=== PATIENT | male | born 1940 | race Caucasian/White ===

== ENCOUNTER 2024-07-09 12:52 | Inpatient (IN) | payer MEDICARE, MEDICAID, SELFPAY ==
[2024-07-09] VITALS (12 sets, daily range): BP systolic 151–217; BP diastolic 70–110; PULSE 42–84; RESP 12–100; TEMP 36.3–36.6; O2SAT 99–100; BMI 20.5
--- NOTE | 2024-07-09 | XR_ITS ---
Examination: MRI of brain without intravenous contrast. MRI brain with intravenous contrast. Date and time of exam:July 29, 2024 1800 hrs. Indications: Ataxia altered mental status confusion today Technique: Multiple axial and sagittal images of the brain to been obtained. Siemens high-resolution 1.52 Lakisha short bore scanner utilized. Sagittal sections, T1 weighted images, TR 500, TE 14, are performed. Axial sections proton-density and T2-weighted images have been obtained. Inversion recovery axial images, TR 9260, TE 111, TR 2500. Diffusion weighted images, axial sections, TR 4800, TE 128, B value 1000. Axial sections, ADC map, TR 4800, TE 128. Axial and coronal images were also obtained post 10 cc gadolinium administered intravenously. Findings:: Enlargement of the sella turcica is not present. The optic chiasm and infundibular stalk are not remarkable. There is no localized enlargement of the medulla or peter. Fourth ventricle and cerebellar tonsils appear normal in position. No subacute area of hemorrhage density is seen. Fourth ventricle is midline. Mass in the cerebellopontine angle region is not evident. 7th and 8th nerve complexes exhibit symmetry Globes are symmetrical Orbital musculature including medial lateral rectus muscles do not exhibit abnormality Increased white matter signal is significant Effacement of the cortical sulcal markings is not identified. Mass effect upon the ventricular system is not identified. Diffusion-weighted images demonstrate no focus of restricted diffusion Contrast images demonstrate no abnormal contrast enhancement Impression: Negative for acute hemorrhage mass effect or midline shift No acute infarct Prominent chronic microvascular white matter change
--- NOTE | 2024-07-09 13:03 | XR_ITS ---
Examination: AP chest single view Technique one AP portable upright chest single view Exam date and time: July 09, 2024 1357 hrs. Comparison October 10, 2012 Indications: Onset chest pain today. Findings: Normal heart size The lungs are clear. The osseous structures are intact Impression: No active disease
--- NOTE | 2024-07-09 13:03 | EKG_ITS ---
[facility] Test Date: 2024-07-09 Pat Name: CHIQUIS SINCLAIR Department: Room: - Gender: Male Sterile Proc Tech: : 1940 Requested By: Garrett Nieves Order Number: [id number] Reading MD: Garrett Nieves Measurements Intervals Gilman Rate: 66 P: 64 WI: 154 QRS: 68 QRSD: 97 T: -80 QT: 419 QTc: 440 Interpretive Statements SINUS RHYTHM POSSIBLE RIGHT VENTRICULAR CONDUCTION DELAY [RSR (QR) IN V1/V2] ST DEVIATION AND MODERATE T-WAVE ABNORMALITY, CONSIDER ANTEROLATERAL ISCHEMIA [-0.1+ mV T WAVE IN V3-V6] ST DEVIATION AND MODERATE T-WAVE ABNORMALITY, CONSIDER INFERIOR ISCHEMIA [-0.1+ mV T WAVE IN II/aVF] No previous ECG available for comparison /store/S0/[id number].pdf
--- NOTE | 2024-07-09 13:04 | XR_ITS ---
Examination: CT brain head without contrast. 2-D sagittal coronal reconstructions Date and time of exam:July 09, 2024 at 1343 hrs. Indications: Onset dizziness headaches today CTDI: vol (mGy):50.5 DLP: (mGycm):1015 Technique: Multiple CT axial sections of the brain have been obtained, 5 mm slice thickness. Contrast has not been administered. 2-D sagittal, coronal reconstructions have been obtained Low dose protocols were performed. One or more of the following dose reduction techniques were used; automated exposure control, adjustment of the mA and/or KV according to patient size, use of iterative reconstruction technique. Findings: No significant ventricular enlargement. Intra-axial or extra-axial hemorrhage density is not seen. No mass effect or midline shift Basal cisterns are not remarkable. Fourth ventricle is midline. Cranial vault intact. Impression: Negative for acute hemorrhage, mass effect or midline shift Advise clinical correlation and follow-up accordingly
--- NOTE | 2024-07-09 13:05 | EDNOTE_ITS ---
<Statement entered by Laurence Pleitez MD - 07/10/24 13:50> As co-signing physician, I was present and available for consult prn. I concur with the plan and care as documented by the midlevel provider. ED General RME/HPI General Chief complaint: Weakness Stated complaint: WEAKNESS, DIZZINESS Time Seen by Provider: 07/09/24 13:03 Arrival date/time: 07/09/24 12:52 RME / HPI RME / HPI narrative: 84-year-old male patient with significant history of hypertension, BPH, was brought in by EMS for evaluation regarding sudden onset of dizziness. Apparently patient lives alone, and called EMS for sudden onset of dizziness. Per EMS, there was no other family member in the house. With the patient transferred from the bed to the [facility], patient was noted to have ataxic gait. Patient told me that he lives alone. He is not using a walker or cane to ambulate. Patient denies any headache. Denies any fever. Denies any vomiting denies any other complaints. No medication was taken prior to arrival Related Data Home Medications ?Medication ?Instructions ?Recorded ?Confirmed tamsulosin 0.4 mg capsule (Flomax) 0.4 mg PO QDAY Pros islas ##0 07/20/13 02/04/18 amlodipine 10 mg tablet 10 mg PO QDAY 02/04/1802/04 ferrous sulfate 325 mg (65 mg 325 mg PO QDAY 02/04/18 02/04/18 iron) tablet (iron) metoprolol succinate 50 mg 50 mg PO DAILY 02/04/1811/16 tablet,extended release 24 hr sucralfate 1 gram tablet 0.5 tab PO BID 02/04/1811/16 Allergies Allergy/AdvReac Type Severity Reaction Status Date / Time No Known Allergies Allergy Unverified 02/04/18 10:52 Review of Systems Review of Systems Narrative Review of Systems: Review of system reviewed and within normal limits except mentioned in HPI ED Exam Narrative Physical exam: VITAL SIGNS: Reviewed. GENERAL APPEARANCE: Alert and interactive, follows commands, no acute distress, HEAD AND FACE: Non-traumatic. ENT: PERRL, pink conjunctivitis, eyelid no trauma, Mucous membrane moist. NECK: Supple, nontender, no nuchal rigidity. CHEST: No tenderness, no crepitus, no paradoxical movement, no retractions. LUNGS: Clear, well ventilated, symmetric, no rales, no wheezing, no ronchi, no stridor, good breath sounds bilaterally. HEART: Regular rate, regular rhythm, no murmur, no gallops. ABDOMEN: Soft, positive bowel sounds, nondistended, no guarding, nontender, no rebound, no masses, RECTAL: Deferred. GENITAL: Deferred. NEUROLOGICAL: Gross motor function intact sensory function intact, Appropriate for age. MUSCULOSKELETAL: low back nontender, full range of motion. EXTREMITIES: Nontender, full range of motion. SKIN: Color pink, dry, no rash, no lacerations, no abrasions, no contusions. LYMPHATICS: Deferred. Course Quality Measures none Orders Category Date Time Status 24 HR Medical Restraints Q2HR Care 07/09/24 15:34 Active COVID-19 Screening Questionnaire NOW Care 07/09/24 15:53 Active Decision to Admit X1 Care 07/09/24 15:53 Completed EKG (ED ONLY) *Do not use* NOW Care 07/09/24 13:04 Completed العلي to [place] Routine Care 07/09/24 15:54 Ordered MRI Screening NOW Care 07/09/24 15:[address] head/brain wo con Stat Exams 07/09/24 13:04 Completed EKG (ED Only) Stat Exams 07/09/24 13:03 Draft MR head/brain wo/w con Stat Exams 07/09/24 Ordered XR chest 1V Stat Exams 07/09/24 13:03 Completed Ammonia Stat Lab 07/09/24 15:53 Received B-Type Natriuretic Peptide Stat Lab 07/09/24 13:17 Completed CBC Stat Lab 07/09/24 13:17 Completed Comprehensive Metabolic Panel Stat Lab 07/09/24 13:17 Completed Drug Screen,Urine Stat Lab 07/09/24 13:54 Completed Partial Thromboplastin Time Stat Lab 07/09/24 13:17 Completed Prothrombin Time with INR Stat Lab 07/09/24 13:17 Completed Troponin I Stat Lab 07/09/24 13:17 Completed Urinalysis, C/S if Indicated Stat Lab 07/09/24 13:54 Completed LORazepam [Ativan Inj] Med 07/09/24 14:46 Discontinued 1 mg IVP X1 ONE LORazepam [Ativan Inj] Med 07/09/24 15:32 Discontinued 2 mg IM X1 ONE LORazepam [Ativan Inj] Med 07/09/24 15:26 Discontinued 2 mg IVP X1 ONE POTASSIUM CHL 10 mEq IVPB [Kcl Ivpb] Med 07/09/24 15:57 Active 10 meq in 100 ml IV X1 Sodium Chloride 0.9% 1000 ml [Ns] 1,000 ml Med 07/09/24 14:46 Discontinued IV 999 mls/hr Sodium Chloride 0.9% 1000 ml [Ns] 1,000 ml Med 07/09/24 15:54 Active IV 999 mls/hr cloNIDine HCL [Catapres] Med 07/09/24 13:58 Discontinued 0.2 mg PO X1 ONE Vital Signs Vital signs: Vital Signs Temperature 97.8 F 07/09/24 13:00 Pulse Rate 74 07/09/24 13:00 Respiratory Rate 15 07/09/24 13:00 Blood Pressure 217/84 H 07/09/24 13:00 Pulse Oximetry (%) 99 07/09/24 13:00 Oxygen Delivery Method Room Air 07/09/24 13:00 [facility] Patient data External records reviewed:: None Clinical information provided by:: none Social determinants that could affect healthcare access:: none Patient has the following chronic illnesses:: Hypertension How is presenting disease/condition affected by chronic disease/condition?: e xacerbated by Evaluation data The following diagnostics were reviewed and interpreted by me:: lab results, radiology exam(s) and EKG tracing(s) Lab and/or radiology exams considered but not ordered:: None Interpretation Summary: EKG showed sinus rhythm, ventricular rate of 66 bpm, no ST segment elevation depression noted about workup all came back unremarkable. Including CT scan of the head. Medications Medications considered but not ordered:: None Medication administrations:: Medication Administration History Sodium Chloride (Ns) 1,000 mls @ 999 mls/hr IV .Q1H1M ONE Stop: 07/09/24 16:54 Potassium Chloride (Kcl Ivpb) 10 meq in 100 mls @ 100 mls/hr IV X1 ONE Stop: 07/09/24 16:56 Discontinued Medications Clonidine (Clonidine Hcl 0.1 Mg Tablet) 0.2 mg PO X1 ONE Stop: 07/09/24 13:59 Last Admin: 07/09/24 15:15 Dose: 0.2 mg Documented By: Admin: 07/09/24 14:13 Dose: Not Given Documented By: GM Non-Admin Reason: Cancelled by Provider Sodium Chloride (Ns) 1,000 mls @ 999 mls/hr IV .Q1H1M ONE Stop: 07/09/24 15:46 Lorazepam (Lorazepam 2 Mg/Ml Vial) 1 mg IVP X1 ONE Stop: 07/09/24 14:47 Last Admin: 07/09/24 14:53 Dose: 1 mg Documented By: MP Lorazepam (Lorazepam 2 Mg/Ml Vial) 2 mg IVP X1 ONE Stop: 07/09/24 15:27 Last Admin: 07/09/24 15:32 Dose: Not Given Documented By: GM Non-Admin Reason: Discontinued Lorazepam (Lorazepam 2 Mg/Ml Vial) 2 mg IM X1 ONE Stop: 07/09/24 15:33 Last Admin: 07/09/24 15:33 Dose: 2 mg Documented By: GM Patient received IV fluids for hydration, clonidine, Ativan Consultations Consultation(s) initiated? (list below): Yes Consultation #1 (Physician, Specialty, Details): I consulted with teleneurologist, and spoke with them, told me at this time he did not suspect any CVA, however he wanted the patient to be admitted for metabolic workup and hypertensive emergency Diagnosis Differential Diagnosis ED Complaint MDM: Dizziness, acute confusion, hypertensive urgency Most likely diagnosis given after review of the tests above:: Hypertensive emergency, acute confusion Admission Indicated Admission indicated?: indicated Explain why admission is indicated or not indicated:: Patient is to be admitted for further management Admission Request Was there a request for admission?: Yes Admission Attestation Admission request attestation: Discussed case with [Dr Syed] from Hospitalist service regarding admission. Discussed patients ED course, exam findings, labs, and radiology results. The Hospitalist [agrees to accept the patient for admission. Disposition Plan Disposition Plan: Admit Medical Decision Making MDM Narrative MDM Narrative: 84-year-old male patient with significant history of hypertension, BPH, was brought in by EMS for evaluation regarding sudden onset of dizziness. Apparently patient lives alone, and called EMS for sudden onset of dizziness. Per EMS, there was no other family member in the house. With the patient transferred from the bed [facility] the [facility], patient was noted to have ataxic gait. Patient told me that he lives alone. He is not using a walker or cane to ambulate. Patient denies any headache. Denies any fever. Denies any vomiting denies any other complaints. No medication was taken prior to arrival Stroke alert was initiated, and I spoke to the teleneurologist, and told me that at this time he do not suspect any CVA at this time however patient is to be admitted for metabolic workup. CT scan of the head came back unremarkable. Workup also all came back normal including normal urinalysis. Which patient become more violent and confused, hitting as, and patient was given Ativan and placed on a 4 point restraints. Differential Diagnosis Differential Diagnosis: Dizziness, acute confusion, hypertensive urgency Lab Data 07/09/24 13:17 07/09/24 13:17 Labs: Lab Results 07/09/24 07/09/24 Range/Units 13:17 13:54 WBC 8.6 (3.8-10.6) Thou/mm3 RBC 4.03 L (4.50-5.90) Miln/mm3 Hgb 12.4 L (13.5-16.0) g/dL Hct 36.2 L (41.0-53.0) % MCV 90 (80-100) fL MCH 30.8 (25.0-35.0) pg MCHC 34.3 (31.0-37.0) g/dl RDW Std Deviation 38.5 (35.1-43.9) fL Plt Count 219 (140-440) Thou/mm3 Neut % (Auto) 83 H (37-80) % Lymph % (Auto) 8 L (10-50) % Baxter % (Auto) 8 (0-12) % Eos % (Auto) 1 (0-10) % Baso % (Auto) 0 (0-2.5) % Neut # (Auto) 7.2 (1.8-7.7) Thou/mm3 Lymph # (Auto) 0.7 L (1.0-4.8) Thou/mm3 Baxter # (Auto) 0.7 (0.0-0.8) Thou/mm3 Eos # (Auto) 0.1 (0.0-0.5) Thou/mm3 Baso # (Auto) 0.0 (0.0-0.2) Thou/mm3 Immature Gran # (Auto) 0.02 H (0.00-0.00) Thou/mm3 Absolute Nucleated RBC 0.00 (0.00-0.00) Thou/mm3 Immature Gran % 0 (0-0) % Nucleated RBC % 0 (0) /100 WBC PT 10.4 (9.0-12.2) Seconds INR 0.9 (0.9-1.3) APTT 26.9 (22.0-36.0) Seconds Sodium 133 L (136-145) mMol/L Potassium 3.2 L (3.4-5.1) mMol/L Chloride 98 (98-107) mMol/L Carbon Dioxide 27.4 (20.0-31.0) mMol/L Anion Gap 8 (7-16) BUN 14 (9-23) mg/dL Creatinine 1.0 (0.6-1.3) mg/dL Estim Creat Clear Calc 46.8 L (>60) mL/min eGFR > 60 (60 - ) See Note BUN/Creatinine Ratio 14 (12-20) Ratio Glucose 116 H (74-106) mg/dL Calculated Osmolality 267 L (275-295) Calcium 9.1 (8.3-10.6) mg/dL Corrected Calcium 9.1 (8.5-10.1) mg/dL Total Bilirubin 0.7 (0.3-1.2) mg/dL AST 20 (0-34) U/L ALT 14 (10-49) U/L Alkaline Phosphatase 68 (46-116) U/L Troponin I 0.042 (0.0-0.045) ng/mL B-Natriuretic Peptide 339 H (0-100) pg/mL Total Protein 6.5 (5.7-8.2) gm/dL Albumin 4.2 (3.4-4.8) gm/dL Globulin 2.3 (2.3-3.5) gm/dL Albumin/Globulin Ratio 1.8 (1.2-2.2) Ur Collection Type Clean Catch Urine Color Colorless A (Lt Yel-Yel) Urine Clarity Clear (Clear/Hazy) Urine pH 7.0 (5.0-7.0) Ur Specific [place] 1.004 (1.001-1.035) Urine Protein Negative (Neg - Trace) Urine Glucose (UA) Negative (Negative) Urine Ketones Negative (Negative) Urine Blood Negative (Negative) Urine Nitrite Negative (Negative) Urine Bilirubin Negative (Negative) Urine Urobilinogen (Auto) Negative (0.0-1.0) mg/dL Ur Leukocyte Esterase Negative (Negative) Urine RBC < 1 (0-3) /hpf Urine WBC < 1 (0-5) /hpf Ur Squamous Epith Cells 0 (0-5) /hpf Urine Bacteria None (None) Ur Culture Indicated? Not Indicated Urine Opiates Screen Negative (Negative) Urine Fentanyl Screen Negative (Negative) Ur Barbiturates Screen Negative (Negative) U Amphetamin/Meth Scrn Negative (Negative) U Benzodiazepines Scrn Negative (Negative) U Cocaine Metab Screen Negative (Negative) U Marijuana (THC) Screen Negative (Negative) Discharge Plan Plan Patient Disposition: Admit Acute Care w/in Hospital Prescriptions/Referrals Prescriptions/Med Rec: No Action tamsulosin [Flomax] 0.4 MG capsule,extended release 24hr 0.4 mg PO QDAY Qty: 0 metoprolol succinate 50 mg Tablet Extended Release 24 Hr 50 mg PO DAILY sucralfate 1 gram Tablet 0.5 tab PO BID amlodipine 10 mg Tablet 10 mg PO QDAY ferrous sulfate [iron] 325 mg (65 mg iron) Tablet 325 mg PO QDAY Referrals: No Primary/Family,Physician [Primary Care Provider] - In 1 week Problem List Clinical Impression: Dizziness, Acute confusion Patient/Caregiver Discharge Instructions Print Language: Korean Stand Alone Forms: Norma Award Info., Patient Portal Info Letter
[2024-07-09 13:36] LABS: Basophils % (Auto) 0 % (0-2.5); Eosinophils # (Auto) 0.1 Thou/mm3 (0.0-0.5); Eosinophils % (Auto) 1 % (0-10); Hematocrit 36.2 % (41.0-53.0); Hemoglobin 12.4 g/dL (13.5-16.0); Immature Granulocytes % (Auto) 0 % (0-0); Immature Granulocytes Auto 0.02 Thou/mm3 (0.00-0.00); Lymphocytes # (Auto) 0.7 Thou/mm3 (1.0-4.8); Lymphocytes % (Auto) 8 % (10-50); Mean Corpuscular HGB Conc 34.3 g/dl (31.0-37.0); Mean Corpuscular Hemoglobin 30.8 pg (25.0-35.0); Mean Corpuscular Volume 90 fL (80-100); Monocytes # (Auto) 0.7 Thou/mm3 (0.0-0.8); Monocytes % (Auto) 8 % (0-12); Neutrophils # (Auto) 7.2 Thou/mm3 (1.8-7.7); Neutrophils % (Auto) 83 % (37-80); Nucleated Red Blood Cell % 0 /100 WBC (0); Platelet Count 219 Thou/mm3 (140-440); RDW Standard Deviation 38.5 fL (35.1-43.9); Red Blood Count 4.03 Miln/mm3 (4.50-5.90); White Blood Count 8.6 Thou/mm3 (3.8-10.6)
[2024-07-09 14:05] LABS: INR 0.9 (0.9-1.3); Partial Thromboplastin Time 26.9 Seconds (22.0-36.0); Prothrombin Time 10.4 Seconds (9.0-12.2)
[2024-07-09 14:10] LABS: B-Type Natriuretic Peptide 339 pg/mL (0-100)
[2024-07-09 14:12] LABS: Alanine Aminotransferase 14 U/L (10-49); Albumin, Serum 4.2 gm/dL (3.4-4.8); Albumin/Globulin Ratio 1.8 (1.2-2.2); Alkaline Phosphatase 68 U/L (46-116); Anion Gap 8 (7-16); Aspartate Amino Transferase 20 U/L (0-34); BUN/Creatinine Ratio 14 Ratio (12-20); Bilirubin,Total 0.7 mg/dL (0.3-1.2); Blood Urea Nitrogen 14 mg/dL (9-23); Calcium 9.1 mg/dL (8.3-10.6); Calcium (Corrected) 9.1 mg/dL (8.5-10.1); Carbon Dioxide 27.4 mMol/L (20.0-31.0); Chloride 98 mMol/L (98-107); Estimated Creatinine Clearance 46.8 mL/min (>60); Globulin 2.3 gm/dL (2.3-3.5); Glucose 116 mg/dL (74-106); Osmolality,Calculated 267 (275-295); Potassium 3.2 mMol/L (3.4-5.1); Sodium 133 mMol/L (136-145); Total Protein 6.5 gm/dL (5.7-8.2); Troponin I 0.042 ng/mL (0.0-0.045); eGFR > 60 See Note
[2024-07-09 14:38] LABS: Collection Type, Urine Clean Catch; Squamous Epithelial Cell,Urine 0 /hpf (0-5)
[2024-07-09 14:45] LABS: Bilirubin,Urine Negative (Negative); Blood,Urine Negative (Negative); Clarity,Urine Clear (Clear/Hazy); Color,Urine Colorless (Lt Yel-Yel); Culture Indicated,Urine Not Indicated; Glucose, Urine Negative (Negative); Ketones,Urine Negative (Negative); Leukocyte Esterase,Urine Negative (Negative); Nitrite,Urine Negative (Negative); Protein,Urine Negative (Neg - Trace); RBC,Urine < 1 /hpf (0-3); Specific Gravity,Urine 1.004 (1.001-1.035); Urobilinogen,Urine Negative mg/dL (0.0-1.0); WBC,Urine < 1 /hpf (0-5)
[2024-07-09 14:50] LABS: Amphetamine/Methamp Scrn,U Negative (Negative); Barbiturate Screen,Urine Negative (Negative); Benzodiazepines Screen,Urine Negative (Negative); Benzoylecgonine Screen, Ur Negative (Negative); Fentanyl Screen,Urine Negative (Negative); Opiate Screen,Urine Negative (Negative); THC Screen,Urine Negative (Negative)
[2024-07-09] MEDS: LORazepam 2 MG/ML VIAL 1 MG IVP (14:53)
[2024-07-09] MEDS: cloNIDine HCL 0.1 MG TABLET 0.2 MG PO (15:15)
--- NOTE | 2024-07-09 15:29 | ESCONSULT_ITS ---
History of Present Illness Data of Consult Primary Care Provider: Physician No Primary/Family Consult Narrative History of present illness: 84yo man with past medical history significant for HTN, CKD, BPH, and prior UGIB, who presents today with acute confusion and generalized weakness. Per EMS report the patient was endorsing dizziness. The patient is not able to endorse any significant history and is asking to go home. Unclear last known well. cc:: cc: Meds Home Medications and Allergies Home Medications ?Medication ?Instructions ?Recorded ?Confirmed ?Type tamsulosin 0.4 mg capsule (Flomax) 0.4 mg PO QDAY Pros islas ##0 07/20/13 02/04/18 History amlodipine 10 mg tablet 10 mg PO QDAY 02/04/1802/04 History ferrous sulfate 325 mg (65 mg 325 mg PO QDAY 02/04/18 02/04/18 History iron) tablet (iron) metoprolol succinate 50 mg 50 mg PO DAILY 02/04/1811/16 History tablet,extended release 24 hr sucralfate 1 gram tablet 0.5 tab PO BID 02/04/18 090 11/16 History Allergies Allergy/AdvReac Type Severity Reaction Status Date / Time No Known Allergies Allergy Unverified 02/04/18 10:52 Exam - Neurology Vital Signs Temp Pulse Resp BP Pulse Ox O2 Del Method 97.9 F 65 19 201/78 H 100 Room Air 07/09/24 15:00 07/09/24 15:15 07/09/24 15:00 07/09/24 15:15 07/09/24 15:00 07/09/24 15:00 Narrative Exam Examination: BP(201/78), Pulse(70), Blood Glucose(119) 1A: Level of Consciousness - Alert; keenly responsive + 0 1B: Ask Month and Age - Could Not Answer Either Question Correctly + 2 1C: Blink Eyes & Squeeze Hands - Performs Both Tasks + 0 2: Test Horizontal Extraocular Movements - Normal + 0 3: Test Visual Sharma - No Visual Loss + 0 4: Test Facial Palsy (Use Grimace if Obtunded) - Normal symmetry + 0 5A: Test Left Arm Motor Drift - No Drift for 10 Seconds + 0 5B: Test Right Arm Motor Drift - No Drift for 10 Seconds + 0 6A: Test Left Leg Motor Drift - No Drift for 5 Seconds + 0 6B: Test Right Leg Motor Drift - No Drift for 5 Seconds + 0 7: Test Limb Ataxia (FNF/Heel-Campos) - No Ataxia + 0 8: Test Sensation - Normal; No sensory loss + 0 9: Test Language/Aphasia - Normal; No aphasia + 0 10: Test Dysarthria - Normal + 0 11: Test Extinction/Inattention - No abnormality + 0 NIHSS Score: 2 Pre-Morbid Modified [place] Scale: Unable to assess Advanced Imaging: Advanced Imaging Deferred because: Stroke not suspected with clinical presentation and exam Metrics: Last Known Well: Unknown Dispatch Time: 07/09/2024 14:59:37 Arrival Time: 07/09/2024 13:05:00 Initial Response Time: 07/09/2024 15:00:11 Symptoms: confusion. Initial patient interaction: 07/09/2024 15:07:37 NIHSS Assessment Completed: 07/09/2024 15:12:14 Patient is not a candidate for Thrombolytic. Thrombolytic Medical Decision: 07/09/2024 15:12:14 Patient was not deemed candidate for Thrombolytic because of following reasons: LKW outside 4.5 hr window. . I personally Reviewed the CT Head and it Showed no acute hemorrhage or large evolving infarct. Primary Provider Notified of Diagnostic Impression and Management Plan on: 07/09/2024 15:39:08 Results Labs 07/09/24 13:17 07/09/24 13:17 Labs: Short CBC 07/09/24 Range/Units 13:17 WBC 8.6 (3.8-10.6) Thou/mm3 Hgb 12.4 L (13.5-16.0) g/dL Hct 36.2 L (41.0-53.0) % Plt Count 219 (140-440) Thou/mm3 BMP 07/09/24 13:17 Sodium 133 L Potassium 3.2 L Chloride 98 Carbon Dioxide 27.4 BUN 14 Creatinine 1.0 Glucose 116 H Calcium 9.1 Cardiac Enzymes 07/09/24 Range/Units 13:17 Troponin I 0.042 (0.0-0.045) ng/mL Liver Function 07/09/24 Range/Units 13:17 Total Bilirubin 0.7 (0.3-1.2) mg/dL AST 20 (0-34) U/L ALT 14 (10-49) U/L Alkaline Phosphatase 68 (46-116) U/L Albumin 4.2 (3.4-4.8) gm/dL Urine 07/09/24 Range/Units 13:54 Urine Color Colorless A (Lt Yel-Yel) Urine Clarity Clear (Clear/Hazy) Urine pH 7.0 (5.0-7.0) Ur Specific [place] 1.004 (1.001-1.035) Urine Protein Negative (Neg - Trace) Urine Glucose (UA) Negative (Negative) Assessment & Plan Additional Assessment & Plan Additional Plan: [facility] Patient Name: Truman Jang Date of : 1940 Identification Number: Date of Service: 07/09/2024 14:59:38 Diagnosis: ? G93.49 - Encephalopathy Multifactorial Impression: ? 84M, pmh sig for HTN, CKD, BPH, prior UGIB, presenting with generalized weakness and acute encephalopathy marked by disorientation, inattention, and difficulty following complex commands; but otherwise no focal neurol deficit noted; NIHSS 2, unknown last known well. CTH reassuring, and no concern for ischemic stroke or seizure. Concerning for toxic metabolic infectious etiologies. Recommendations: ? Toxic metabolic infectious work-up and empirical therapy per primary team Spoke with : er provider This consult was conducted in real time using interactive audio and video technology. Patient was informed of the technology being used for this visit and agreed to proceed. Patient located in hospital and provider located at home/office setting. Patient is being evaluated for possible acute neurologic impairment and high probability of imminent or life-threatening deterioration. I spent total of 45 minutes providing care to this patient, including time for face to face visit via telemedicine, review of medical records, imaging studies and discussion of findings with providers, the patient and/or family. Dr David Herrmann [facility] For Inpatient follow-up with [facility] physician please call [facility] at . As we are not an outpatient service for any post hospital discharge needs please contact the hospital for assistance. If you have any questions for the [facility] physicians or need to reconsult for clinical or diagnostic changes please contact us via [facility] at .
[2024-07-09] MEDS: LORazepam 2 MG/ML VIAL IM (15:33)
--- NOTE | 2024-07-09 15:35 | PC.NURSE ---
Addendum entered by Sami Agustin RN 07/09/24 15:50: @1536- [employer] RESOURCE ENGINEER as sitter at bedside. Original Note: SONJA RODRIGUEZ INITIATED AT THIS TIME; PT TRYING TO HIT STAFF AND SPITTING. PT START TO PULL AT LINES AND TRYING TO TAKE OFF MONITOR LEADS. PT EDUCATED REGARDING POC BUT PT NOT COOPERATING. TIM WALLACE PROGRAM ARCHITECT MADE AWARE AND VERBAL ORDERS RECEIVED.
[2024-07-09 16:29] LABS: Ammonia < 10 uMol/L (11-32)
--- NOTE | 2024-07-09 17:18 | PC.NURSE ---
RN called and spoke with Luis Enrique friend on EC did MRI screen for patient. Per Luis Enrique patient lives alone and does not have any close family. Per Luis Enrique will attempt to come by tomorrow to check in on patient.
--- NOTE | 2024-07-09 17:25 | ESHP_ITS ---
<Statement entered by Estevan Baldwin MD - 07/15/24 13:45> I reviewed above note and agree with findings and plans. I have also personally examined the patient with medicine team and went over assessment and plan with medical team including management intern and resident physician. Documentation for date of: 07/09/24 HPI History of Present Illness History of present illness: 84-year-old male patient with significant medical history for hypertension, BPH and prior history of upper GI bleed (per ED) was brought to [facility] for dizziness and ataxic gait. After witnessing patient with the symptoms, patient's neighbor had called the EMS. Patient does not use walker or cane for ambulation and unclear last well-known. Blood glucose by EMS was found to be WNL. In ED blood pressure was elevated at 217/84, CBC indicated Hgb 12.4, MCV 90, labs were significant for NA 133, K3.2, glucose 116, troponin 0.062, BNP 339. EKG showed sinus rhythm. Urinalysis and toxicology were negative. Head CT was negative for acute hemorrhage, chest x-ray showed no active disease, brain MRI was negative for hemorrhage. Initially patient was alert and able to answer questions but over time he became combative and patient was administered 3 mg Ativan along with soft restraints. Patient was admitted for hypertensive emergency in [facility] telemetry. Information was obtained from chart review and ED as patient was nonresponsive during admission. Review of Systems Review of Systems ROS Unobtainable: unobtainable due to mental status and unobtainable due to medical condition Exam Vital Signs Temp Pulse Resp BP Pulse Ox O2 Del Method 97.9 F 52 L 15 168/110 H 100 Room Air 07/09/24 16:26 07/09/24 17:18 07/09/24 17:18 07/09/24 16:26 07/09/24 16:26 07/09/24 16:26 Narrative Exam Constitutional: Cachectic, fragile looking elderly man, in mild distress, lying in bed HEENT: NCAT, EOMI, reactive round pupils b/l, patent nares b/l, moist mucous membranes Lung: CTAB, no wheezing, no rhonchi Heart: Regular S1S2, no murmurs, gallops, or rubs Abdomen: Soft, non-distended, non-tender, bowel sounds present throughout Extremities: No cyanosis, clubbing, or edema, LE pulses diminished b/l, soft restraints noted Neurologic: Unable to perform due to patient's mentation, AO x 1 Skin: Warm, dry, no lesions or rashes noted Results: Labs 07/09/24 13:17 07/09/24 13:17 Labs: Short CBC 07/09/24 Range/Units 13:17 WBC 8.6 (3.8-10.6) Thou/mm3 Hgb 12.4 L (13.5-16.0) g/dL Hct 36.2 L (41.0-53.0) % Plt Count 219 (140-440) Thou/mm3 BMP 07/09/24 13:17 Sodium 133 L Potassium 3.2 L Chloride 98 Carbon Dioxide 27.4 BUN 14 Creatinine 1.0 Glucose 116 H Calcium 9.1 Cardiac Enzymes 07/09/24 Range/Units 13:17 Troponin I 0.042 (0.0-0.045) ng/mL Liver Function 07/09/24 Range/Units 13:17 Total Bilirubin 0.7 (0.3-1.2) mg/dL AST 20 (0-34) U/L ALT 14 (10-49) U/L Alkaline Phosphatase 68 (46-116) U/L Albumin 4.2 (3.4-4.8) gm/dL Urine 07/09/24 Range/Units 13:54 Urine Color Colorless A (Lt Yel-Yel) Urine Clarity Clear (Clear/Hazy) Urine pH 7.0 (5.0-7.0) Ur Specific [place] 1.004 (1.001-1.035) Urine Protein Negative (Neg - Trace) Urine Glucose (UA) Negative (Negative) Quality Measures Quality Measures none Advance care planning discussed with:: other Medications Home Medications and Allergies Home Medications ?Medication ?Instructions ?Recorded ?Confirmed ?Type tamsulosin 0.4 mg capsule (Flomax) 0.4 mg PO QDAY Pros islas ##0 07/20/13 02/04/18 History amlodipine 10 mg tablet 10 mg PO QDAY 02/04/1802/04 History ferrous sulfate 325 mg (65 mg 325 mg PO QDAY 02/04/18 02/04/18 History iron) tablet (iron) metoprolol succinate 50 mg 50 mg PO DAILY 02/04/1811/16 History tablet,extended release 24 hr sucralfate 1 gram tablet 0.5 tab PO BID 02/04/18 09/0 11/16 History Allergies Allergy/AdvReac Type Severity Reaction Status Date / Time No Known Allergies Allergy Unverified 02/04/18 10:52 Visit Medications Acetaminophen (Acetaminophen 325 Mg Tablet) 650 mg PO Q6H PRN PRN Reason: Fever >101.5 Stop: 08/08/24 16:27 Amlodipine Besylate (Amlodipine Besylate 5 Mg Tablet) 10 mg PO X1 ONE Stop: 07/09/24 17:31 Last Admin: 07/09/24 17:24 Dose: Not Given Heparin Sodium (Porcine) (Heparin Sod Inj 5000 Unit/Ml Vial) 5,000 unit SC Q12HR KARLY Stop: 07/23/24 16:44 Labetalol HCl (Labetalol Inj 5 Mg/Ml Vial 20 Ml) 10 mg IVP Q6H PRN PRN Reason: blood pressure > 170 Stop: 08/08/24 16:35 Ondansetron HCl (Ondansetron Inj 2 Mg/Ml Inj 2 Ml) 4 mg IV Q6H PRN; Protocol PRN Reason: NAUSEA OR VOMITING Stop: 08/08/24 16:27 Pantoprazole Sodium (Pantoprazole Inj 40 Mg Vial) 40 mg IVP QDAY KARLY Stop: 08/09/24 08:59 Discontinued Medications Clonidine (Clonidine Hcl 0.1 Mg Tablet) 0.2 mg PO X1 ONE Stop: 07/09/24 13:59 Last Admin: 07/09/24 15:15 Dose: 0.2 mg Sodium Chloride (Ns) 1,000 mls @ 999 mls/hr IV .Q1H1M ONE Stop: 07/09/24 15:46 Last Admin: 07/09/24 17:23 Dose: Not Given Sodium Chloride (Ns) 1,000 mls @ 999 mls/hr IV .Q1H1M ONE Stop: 07/09/24 16:54 Potassium Chloride (Kcl Ivpb) 10 meq in 100 mls @ 100 mls/hr IV X1 ONE Stop: 07/09/24 16:56 Lorazepam (Lorazepam 2 Mg/Ml Vial) 1 mg IVP X1 ONE Stop: 07/09/24 14:47 Last Admin: 07/09/24 14:53 Dose: 1 mg Lorazepam (Lorazepam 2 Mg/Ml Vial) 2 mg IVP X1 ONE Stop: 07/09/24 15:27 Last Admin: 07/09/24 15:32 Dose: Not Given Lorazepam (Lorazepam 2 Mg/Ml Vial) 2 mg IM X1 ONE Stop: 07/09/24 15:33 Last Admin: 07/09/24 15:33 Dose: 2 mg Assessment & Plan Plan 84-year-old male patient with significant medical history for BPH and hypertension admitted for hypertensive emergency. #Hypertensive emergency #History of hypertension On admission patient complaining of dizziness ED vitals significant for blood pressure of 217/84 Patient administered Ativan soft restraints as he was becoming agitated Patient received clonidine in ED Plan: ? Admit to telemetry observation ? Blood pressure 20 to 25% within first 24 hours ? Start patient on amlodipine 10 mg daily ? IV labetalol 10 mg as needed every 6 hours for SBP >170 #Acute encephalopathy #Agitation Most likely secondary to hypertensive emergency Urinalysis and toxicology negative Head CT and MRI unremarkable for hemorrhage or midline shift Plan: ? Neurochecks every 4 hour ? Treat underlying hypertension by lowering SBP 20-25% in the first 24 hours ? N.p.o. ? Head of bed elevation ? Swallow evaluation ? Seizure precaution #Troponinemia, most likely type II On admission patient with elevated troponins of 0.062 EKG showed normal sinus rhythm Plan: ? Trend troponins #BPH Plan: Restart home med after reconciliation #History of upper GI bleed Per chart review patient with history of previous upper GI bleed Admission lab indicative of hemoglobin 12.4, MCV 90, hCG 36 Plan: ? Maintain Hgb >7 ? Follow-up CBC Health Maintenance Dispo: Patent admitted for obs due to hypertensive emergency Diet: NPO in setting of encephalopathy DVT/PPx: Heparin GI ppx: Protonix Lines: PIV Code Status: Full Code This patient care was discussed with my attending Dr. Denny Mendoza MD PGY-2 Disclaimer: Minor errors in powdered sugar supervisor may be present since this note was dictated by speech recognition software.
[2024-07-09 17:32] LABS: Troponin I 0.062 ng/mL (0.0-0.045)
[2024-07-09] MEDS: SODIUM CHLORIDE 0.9% 1000 ML 1,000 ML 999 ML IV (17:41)
[2024-07-09] MEDS: HEPARIN SOD INJ 5000 UNIT/ML VIAL SC (17:45)
[2024-07-09] MEDS: POTASSIUM CHL 10 mEq IVPB 10 MEQ/100 ML BAG 100 MEQ IV ×2 (17:45→22:18)
--- NOTE | 2024-07-09 21:36 | PC.NURSE ---
Unable to do med rec,pt is confused at this time.
[2024-07-09 23:53] LABS: Troponin I 0.078 ng/mL (0.0-0.045)
[2024-07-10] VITALS (12 sets, daily range): BP systolic 152–183; BP diastolic 68–100; PULSE 43–84; RESP 14–99; TEMP 35.9–37.2; O2SAT 99–100
--- NOTE | 2024-07-10 00:10 | PC.NURSE ---
Pt got up to use the bathroom, pt is non steady on his feet, with maximum assist.
--- NOTE | 2024-07-10 03:00 | PC.NURSE ---
Pt had smear on the pads, me and the sitter tried to cleaned him up but pt kicked on one of the staff, talked to him and explained that kicking staff is inappropriate behavior and hurting staff is not acceptable, pt tried to swing his legs and trying to get out of bed, bilateral wrist restraints applied.
[2024-07-10 05:43] LABS: Basophils # (Auto) 0.1 Thou/mm3 (0.0-0.2); Basophils % (Auto) 1 % (0-2.5); Eosinophils # (Auto) 0.1 Thou/mm3 (0.0-0.5); Eosinophils % (Auto) 1 % (0-10); Hematocrit 36.4 % (41.0-53.0); Hemoglobin 12.5 g/dL (13.5-16.0); Immature Granulocytes % (Auto) 0 % (0-0); Immature Granulocytes Auto 0.02 Thou/mm3 (0.00-0.00); Lymphocytes # (Auto) 0.6 Thou/mm3 (1.0-4.8); Lymphocytes % (Auto) 8 % (10-50); Mean Corpuscular HGB Conc 34.3 g/dl (31.0-37.0); Mean Corpuscular Hemoglobin 31.1 pg (25.0-35.0); Mean Corpuscular Volume 91 fL (80-100); Monocytes # (Auto) 0.6 Thou/mm3 (0.0-0.8); Monocytes % (Auto) 9 % (0-12); Neutrophils # (Auto) 5.6 Thou/mm3 (1.8-7.7); Neutrophils % (Auto) 81 % (37-80); Nucleated Red Blood Cell % 0 /100 WBC (0); Platelet Count 216 Thou/mm3 (140-440); RDW Standard Deviation 39.2 fL (35.1-43.9); Red Blood Count 4.02 Miln/mm3 (4.50-5.90); White Blood Count 6.9 Thou/mm3 (3.8-10.6)
[2024-07-10 06:13] LABS: Alanine Aminotransferase 12 U/L (10-49); Albumin, Serum 3.9 gm/dL (3.4-4.8); Albumin/Globulin Ratio 1.9 (1.2-2.2); Alkaline Phosphatase 65 U/L (46-116); Anion Gap 8 (7-16); Aspartate Amino Transferase 24 U/L (0-34); BUN/Creatinine Ratio 14 Ratio (12-20); Blood Urea Nitrogen 11 mg/dL (9-23); Calcium 8.8 mg/dL (8.3-10.6); Calcium (Corrected) 8.9 mg/dL (8.5-10.1); Carbon Dioxide 27.1 mMol/L (20.0-31.0); Chloride 105 mMol/L (98-107); Creatinine (Component) 0.8 mg/dL (0.6-1.3); Estimated Creatinine Clearance 58.5 mL/min (>60); Globulin 2.1 gm/dL (2.3-3.5); Glucose 92 mg/dL (74-106); Osmolality,Calculated 278 (275-295); Potassium 3.5 mMol/L (3.4-5.1); Sodium 140 mMol/L (136-145); Thyroid Stimulating Hormone 2.15 uIU/mL (0.55-4.78); eGFR > 60 See Note
[2024-07-10 06:15] LABS: Troponin I 0.058 ng/mL (0.0-0.045)
[2024-07-10] MEDS: amLODIPine BESYLATE 5 MG TABLET 10 MG PO (08:08)
[2024-07-10] MEDS: PANTOPRAZOLE INJ 40 MG VIAL IVP (08:11)
[2024-07-10] MEDS: HEPARIN SOD INJ 5000 UNIT/ML VIAL SC ×2 (08:11→20:30)
--- NOTE | 2024-07-10 10:38 | PC.SS ---
Utilization Reviewer (SW) Nkechi attempted to meet with patient. Patient was too confused to answer questions. SW attempted to contact emergency contact, Luis Enrique, with no success.
--- NOTE | 2024-07-10 13:21 | PC.NURSE ---
PATIENT GETTING AGGRESSIVE WITH STAFF. PATIENT IS ON RESTRAINTS IT TOOK MULTIPLE STAFF TO KEEP HIM ON BED. SONJA RODRIGUEZ JUST CALLED
[2024-07-10] MEDS: HALOPERIDOL LACT INJ 5 MG/ML VIAL IM (13:27)
--- NOTE | 2024-07-10 14:05 | PC.NURSE ---
Patient kicked and scratched staff. A code john and a rapid response were called. Haldol administered at bedside patient is calm resting in bed now.
[2024-07-10] MEDS: LORazepam 2 MG/ML VIAL IVP (15:12)
--- NOTE | 2024-07-10 18:48 | ESPR_ITS ---
<Statement entered by Estevan Baldwin MD - 07/18/24 15:02> I reviewed above note and agree with findings and plans. I have also personally examined the patient with medicine team and went over assessment and plan with medical team including resident intern and resident physician. Documentation for date of: 07/10/24 Subjective Subjective Interval history: Overnight patient had to be kept on restraints, and afternoon code john called as patient was found to be combative. Administered haloperidol for agitation. Later on once again patient needed to be administered Ativan for agitation's. Spoke to patient's friend Luis Enrique ([phone]) who is patient's only [id number]. Per Luis Enrique, few weeks ago patient was noted to be not himself in terms of cognition. Luis Enrique stated that when patient was at his baseline, he was very active, able to take care of himself, went hiking and bike riding. He states that right now patient seems to have lost a lot of weight. Currently patient is on amlodipine, will start lisinopril 10 mg and will continue to adjust BP medications as needed. Exam Vital Signs Temp Pulse Resp BP Pulse Ox O2 Del Method 99.0 F 53 L 14 169/100 H 100 Room Air 07/10/24 16:00 07/10/24 16:06 07/10/24 16:06 07/10/24 16:00 07/10/24 05:48 07/10/24 05:48 Narrative Exam Constitutional: Cachectic, fragile looking elderly man, in mild distress, lying in bed HEENT: NCAT, EOMI, reactive round pupils b/l, patent nares b/l, moist mucous membranes Lung: CTAB, no wheezing, no rhonchi Heart: Regular S1S2, no murmurs, gallops, or rubs Abdomen: Soft, non-distended, non-tender, bowel sounds present throughout Extremities: No cyanosis, clubbing, or edema, LE pulses diminished b/l, soft restraints noted Neurologic: Unable to perform due to patient's mentation, AO x 1 Skin: Warm, dry, no lesions or rashes noted Objective Labs 07/11/24 04:59 07/11/24 04:59 Labs: Laboratory Results - last 24 hr 07/09/24 07/10/24 22:53 04:24 WBC 6.9 RBC 4.02 L Hgb 12.5 L Hct 36.4 L MCV 91 MCH 31.1 MCHC 34.3 RDW Std Deviation 39.2 Plt Count 216 Neut % (Auto) 81 H Lymph % (Auto) 8 L [place] % (Auto) 9 Eos % (Auto) 1 Baso % (Auto) 1 Neut # (Auto) 5.6 Lymph # (Auto) 0.6 L [place] # (Auto) 0.6 Eos # (Auto) 0.1 Baso # (Auto) 0.1 Immature Gran # (Auto) 0.02 H Absolute Nucleated RBC 0.00 Immature Gran % 0 Nucleated RBC % 0 Sodium 140 Potassium 3.5 Chloride 105 Carbon Dioxide 27.1 Anion Gap 8 BUN 11 Creatinine 0.8 Estim Creat Clear Calc 58.5 L eGFR > 60 BUN/Creatinine Ratio 14 Glucose 92 Calculated Osmolality 278 Calcium 8.8 Corrected Calcium 8.9 Phosphorus 2.0 L Magnesium 2.0 Total Bilirubin 1.0 AST 24 ALT 12 Alkaline Phosphatase 65 Troponin I 0.078 H* 0.058 H* Total Protein 6.0 Albumin 3.9 Globulin 2.1 L Albumin/Globulin Ratio 1.9 TSH 2.15 Quality Measures Quality Measures none Advance care planning discussed with:: other Assessment & Plan Assessment Current Active Medications: Generic Name Dose Route Start Last Admin Trade Name Freq PRN Reason Stop Dose Admin Acetaminophen 650 mg 07/09/24 16:28 Acetaminophen 325 Mg Tablet PO 08/08/24 16:27 Q6H PRN Fever >101.5 Amlodipine Besylate 10 mg 07/10/24 09:00 07/10/24 08:08 Amlodipine Besylate 5 Mg Tablet PO 08/09/24 08:59 10 mg QDAY KARLY Administration Heparin Sodium (Porcine) 5,000 unit 07/09/24 16:45 07/10/24 08:11 Heparin Sod Inj 5000 Unit/Ml Vial SC 07/23/24 16:44 5,000 unit Q12HR KARLY Administration Labetalol HCl 10 mg 07/10/24 11:37 Labetalol Inj 5 Mg/Ml Vial 20 Ml IVP 08/08/24 16:35 Q6H PRN SYSTOLIC blood pressure > 170 Lisinopril 10 mg 07/10/24 21:00 Lisinopril 2.5 Mg Tablet PO 08/09/24 20:59 QDAY KARLY Ondansetron HCl 4 mg 07/09/24 16:28 Ondansetron Inj 2 Mg/Ml Inj 2 Ml IV 08/08/24 16:27 Q6H PRN NAUSEA OR VOMITING Protocol Pantoprazole Sodium 40 mg 07/10/24 09:00 07/10/24 08:11 Pantoprazole Inj 40 Mg Vial IVP 08/09/24 08:59 40 mg QDAY KARLY Administration Plan 84-year-old male patient with significant medical history for BPH and hypertension admitted for hypertensive emergency. #Hypertensive emergency #History of hypertension On admission patient complaining of dizziness ED vitals significant for blood pressure of 217/84 Patient administered Ativan soft restraints as he was becoming agitated Patient received clonidine in ED Plan: ? Admit to telemetry observation ? Blood pressure 20 to 25% within first 24 hours ? Continue amlodipine 10 mg daily ? Start lisinopril 10 mg daily ? IV labetalol 10 mg as needed every 6 hours for SBP >170 #Acute encephalopathy #Agitation Most likely secondary to hypertensive emergency Urinalysis and toxicology negative Head CT and MRI unremarkable for hemorrhage or midline shift Plan: ? Neurochecks every 4 hour ? Treat underlying hypertension by lowering SBP 20-25% in the first 24 hours ? N.p.o. ? Head of bed elevation ? Swallow evaluation ? Seizure precaution ? Will consider MRI #Troponinemia, most likely type II On admission patient with elevated troponins of 0.062 EKG showed normal sinus rhythm Plan: ? Trend troponins #BPH Plan: Restart home med after reconciliation #History of upper GI bleed Per chart review patient with history of previous upper GI bleed Admission lab indicative of hemoglobin 12.4, MCV 90, hCG 36 Plan: ? Maintain Hgb >7 ? Follow-up CBC Health Maintenance Dispo: Patent admitted for obs due to hypertensive emergency Diet: NPO in setting of encephalopathy DVT/PPx: Heparin GI ppx: Protonix Lines: PIV Code Status: Full Code This patient care was discussed with my attending Dr. Denny Mendoza MD PGY-2 Disclaimer: Minor errors in fur weigher may be present since this note was dictated by speech recognition software
[2024-07-10] MEDS: Lisinopril 2.5 MG TABLET 10 MG PO (20:36)
[2024-07-11] VITALS (12 sets, daily range): BP systolic 147–193; BP diastolic 62–88; PULSE 68–102; RESP 17–100; TEMP 36.1–37.2; O2SAT 98–100
[2024-07-11 06:09] LABS: Basophils # (Auto) 0.1 Thou/mm3 (0.0-0.2); Basophils % (Auto) 0 % (0-2.5); Eosinophils % (Auto) 0 % (0-10); Hematocrit 39.7 % (41.0-53.0); Hemoglobin 13.7 g/dL (13.5-16.0); Immature Granulocytes % (Auto) 1 % (0-0); Immature Granulocytes Auto 0.06 Thou/mm3 (0.00-0.00); Lymphocytes # (Auto) 0.6 Thou/mm3 (1.0-4.8); Lymphocytes % (Auto) 5 % (10-50); Mean Corpuscular HGB Conc 34.5 g/dl (31.0-37.0); Mean Corpuscular Hemoglobin 30.9 pg (25.0-35.0); Mean Corpuscular Volume 90 fL (80-100); Monocytes # (Auto) 0.9 Thou/mm3 (0.0-0.8); Monocytes % (Auto) 7 % (0-12); Neutrophils # (Auto) 11.2 Thou/mm3 (1.8-7.7); Neutrophils % (Auto) 87 % (37-80); Nucleated Red Blood Cell % 0 /100 WBC (0); Platelet Count 262 Thou/mm3 (140-440); RDW Standard Deviation 38.6 fL (35.1-43.9); Red Blood Count 4.43 Miln/mm3 (4.50-5.90); White Blood Count 12.8 Thou/mm3 (3.8-10.6)
[2024-07-11 07:38] LABS: Alanine Aminotransferase 25 U/L (10-49); Albumin, Serum 4.4 gm/dL (3.4-4.8); Albumin/Globulin Ratio 1.8 (1.2-2.2); Alkaline Phosphatase 77 U/L (46-116); Anion Gap 16 (7-16); Aspartate Amino Transferase 73 U/L (0-34); BUN/Creatinine Ratio 17 Ratio (12-20); Bilirubin,Total 1.3 mg/dL (0.3-1.2); Blood Urea Nitrogen 17 mg/dL (9-23); Calcium 9.5 mg/dL (8.3-10.6); Calcium (Corrected) 9.5 mg/dL (8.5-10.1); Chloride 103 mMol/L (98-107); Estimated Creatinine Clearance 46.8 mL/min (>60); Globulin 2.5 gm/dL (2.3-3.5); Glucose 102 mg/dL (74-106); Magnesium 2.2 mg/dL (1.6-2.6); Osmolality,Calculated 280 (275-295); Phosphorous 2.6 mg/dL (2.4-5.1); Potassium 3.1 mMol/L (3.4-5.1); Sodium 140 mMol/L (136-145); Total Protein 6.9 gm/dL (5.7-8.2); eGFR > 60 See Note
[2024-07-11] MEDS: Lisinopril 2.5 MG TABLET 10 MG PO (08:58)
[2024-07-11] MEDS: PANTOPRAZOLE INJ 40 MG VIAL IVP (08:59)
[2024-07-11] MEDS: amLODIPine BESYLATE 5 MG TABLET 10 MG PO (08:59)
[2024-07-11] MEDS: HEPARIN SOD INJ 5000 UNIT/ML VIAL SC ×2 (08:59→22:14)
[2024-07-11] MEDS: POTASSIUM CHLORIDE 10% 20 MEQ/15 ML UDC 40 MEQ PO (09:12)
--- NOTE | 2024-07-11 11:13 | XR_ITS ---
Examination: CT abdomen with intravenous contrast CT pelvis with intravenous contrast 2-D coronal reconstructions 2-D sagittal reconstructions Date and time of exam:July 11, 2024 at 1649 hours. INDICATIONS: Generalized abdominal pain weakness several days CTDI: vol (mGy) 8.13 DLP: (mGycm) 117 Technique: Multiple axial sections of the abdomen and pelvis have been obtained. 64 slice high-resolution scanner used. 3 mm axial sections have been obtained, post intravenous injection 60 cc [id number] 2-D sagittal, coronal reconstructions obtained. Low dose protocols were performed. One or more of the following dose reduction techniques were used; automated exposure control, adjustment of the mA and/or KV according to patient size, use of iterative reconstruction technique. Findings: Small liver cysts Mild density in the gallbladder Spleen is not enlarged Gastric mucosa appears thickened No pancreatic or adrenal mass No renal or ureteral calculi, no hydronephrosis Heavy abdominal aortic calcification no aneurysmal dilatation Normal appendix No bowel obstruction Colonic diverticulosis, no diverticulitis Large amounts of stool in the rectum with thickening of the rectal wall Transverse prostate dimension 4.4 cm Urinary bladder wall shows significant thickening up to 13 mm with urinary العلي catheter Diffuse [id number] lumbar disc narrowing Moderate narrowing hip joints IMPRESSION: Gastritis pattern Recommend hepatobiliary sonography follow-up Large amounts of stool in the rectum with thickening the rectal wall, proctitis pattern Abnormally irregular urinary bladder wall thickening up to 13 mm, consider cystitis, bladder carcinoma not excluded, clinical correlation follow-up recommended
--- NOTE | 2024-07-11 11:52 | PC.SS ---
Patient is altered and has been since he was admitted. No family listed. Patient only has a friend, Luis Enrique, listed as his alt medical decision maker. SS contacted friend and spoke to him on the phone today. He confirmed he's been patient's friend for the last 30 years. He also confirmed patient has no family. Prior to this hospitalization, patient was independent with ADL's. Lives alone. He was walking a few miles daily and hiking. Does not drive. Patient's friend has been noticing patient slowly declining recently. Declining offers to hike and hasnt' been walking. Lack of energy. Hasn't been acting like himself. Luis Enrique states patient was regularly seeing a PCP, however, does not recall what the name is. Luis Enrique has agreed to be the alt medical decision maker if needed. He will sign any consents. SS will continue to follow up with patient and friend to further work on a safe discharge plan.
[2024-07-11] MEDS: SODIUM CHLORIDE 0.9% 1000 ML 1,000 ML 80 ML IV (12:31)
[2024-07-11] MEDS: POTASSIUM CHLORIDE 10% 20 MEQ/15 ML UDC PO (15:10)
--- NOTE | 2024-07-11 15:33 | PD.RESPRO ---
Documentation for date of: 07/11/24 Subjective Subjective Interval history: 07/11/2024: Overnight patient had to be placed on restraints secondary to becoming combative/aggressive. This morning patient seen and examined in hospital bed seems to be acutely confused and has tenderness upon palpation of the abdomen diffusely. Patient has a العلي catheter which is draining yellow clear urine. CT abdomen pelvis with contrast ordered to assess for any intra-abdominal pathology. Patient's blood pressure continues to be elevated and we will continue to increase dosage of current antihypertensives. Will continue to monitor for any acute changes. Exam Vital Signs Temp Pulse Resp BP Pulse Ox O2 Del Method 97.0 F 102 H 18 158/72 H 100 Room Air 07/11/24 12:00 07/11/24 14:48 07/11/24 14:48 07/11/24 12:11 07/11/24 12:00 07/11/24 07:32 Narrative Exam Constitutional: Cachectic, fragile looking elderly man, in mild distress, lying in bed HEENT: NCAT, EOMI, reactive round pupils b/l, patent nares b/l, moist mucous membranes Lung: CTAB, no wheezing, no rhonchi Heart: Regular S1S2, no murmurs, gallops, or rubs Abdomen: Soft, nondistended but acutely tender with patient grimacing with palpation diffusely Extremities: No cyanosis, clubbing, or edema, LE pulses diminished b/l, soft restraints noted Neurologic: Unable to perform due to patient's mentation, AO x 0 Skin: Warm, dry, no lesions or rashes noted Objective Labs 07/15/24 05:04 07/15/24 05:04 Labs: Laboratory Results - last 24 hr 07/11/24 04:59 WBC 12.8 H D RBC 4.43 L Hgb 13.7 Hct 39.7 L MCV 90 MCH 30.9 MCHC 34.5 RDW Std Deviation 38.6 Plt Count 262 D Neut % (Auto) 87 H Lymph % (Auto) 5 L [place] % (Auto) 7 Eos % (Auto) 0 Baso % (Auto) 0 Neut # (Auto) 11.2 H Lymph # (Auto) 0.6 L [place] # (Auto) 0.9 H Eos # (Auto) 0.0 Baso # (Auto) 0.1 Immature Gran # (Auto) 0.06 H Absolute Nucleated RBC 0.00 Immature Gran % 1 H Nucleated RBC % 0 Sodium 140 Potassium 3.1 L Chloride 103 Carbon Dioxide 21.0 Anion Gap 16 BUN 17 Creatinine 1.0 Estim Creat Clear Calc 46.8 L eGFR > 60 BUN/Creatinine Ratio 17 Glucose 102 Calculated Osmolality 280 Calcium 9.5 Corrected Calcium 9.5 Phosphorus 2.6 Magnesium 2.2 Total Bilirubin 1.3 H AST 73 H ALT 25 Alkaline Phosphatase 77 Total Protein 6.9 Albumin 4.4 D Globulin 2.5 Albumin/Globulin Ratio 1.8 Quality Measures Quality Measures none Advance care planning discussed with:: other Assessment & Plan Assessment Current Active Medications: Generic Name Dose Route Start Last Admin Trade Name Freq PRN Reason Stop Dose Admin Acetaminophen 650 mg 07/09/24 16:28 Acetaminophen 325 Mg Tablet PO 08/08/24 16:27 Q6H PRN Fever >101.5 Amlodipine Besylate 10 mg 07/10/24 09:00 07/11/24 08:59 Amlodipine Besylate 5 Mg Tablet PO 08/09/24 08:59 10 mg QDAY KARLY Administration Heparin Sodium (Porcine) 5,000 unit 07/09/24 16:45 07/11/24 08:59 Heparin Sod Inj 5000 Unit/Ml Vial SC 07/23/24 16:44 5,000 unit Q12HR KARLY Administration Sodium Chloride 1,000 mls @ 80 mls/hr 07/11/24 10:49 07/11/24 12:31 Ns IV 07/11/24 23:18 80 mls/hr .[id number] ONE Administration Labetalol HCl 10 mg 07/10/24 11:37 Labetalol Inj 5 Mg/Ml Vial 20 Ml IVP 08/08/24 16:35 Q6H PRN SYSTOLIC blood pressure > 170 Lisinopril 10 mg 07/10/24 21:00 07/11/24 08:58 Lisinopril 2.5 Mg Tablet PO 08/09/24 20:59 10 mg QDAY KARLY Administration Ondansetron HCl 4 mg 07/09/24 16:28 Ondansetron Inj 2 Mg/Ml Inj 2 Ml IV 08/08/24 16:27 Q6H PRN NAUSEA OR VOMITING Protocol Pantoprazole Sodium 40 mg 07/10/24 09:00 07/11/24 08:59 Pantoprazole Inj 40 Mg Vial IVP 08/09/24 08:59 40 mg QDAY KARLY Administration Potassium Chloride 20 meq 07/11/24 16:00 07/11/24 15:10 Potassium Chloride 10% 20 Meq/15 Ml Udc PO 07/11/24 16:01 20 meq X1 ONE Administration Plan 84-year-old male patient with significant medical history for BPH and hypertension admitted for hypertensive emergency. #Acute encephalopathy #Agitation secondary to abdominal pain Most likely secondary to hypertensive emergency Urinalysis and toxicology negative Head CT and MRI unremarkable for hemorrhage or midline shift MRI brain does not show any acute findings but there are prominent chronic microvascular white matter change Plan: Neurochecks every 4 hour Treat underlying hypertension by lowering SBP 20-25% in the first [address] abdomen pelvis with contrast ordered #Hypertensive emergency #History of hypertension On admission patient complaining of dizziness ED vitals significant for blood pressure of 217/84 Patient administered Ativan soft restraints as he was becoming agitated Patient received clonidine in ED Blood pressure reduced by 20 to 25% within first 24 hours Plan: Continue amlodipine 10 mg daily Continue lisinopril 10 mg daily IV labetalol 10 mg as needed every 6 hours for SBP >170 #Elevated troponin, downtrending On admission patient with elevated troponins of 0.062 EKG showed normal sinus rhythm Troponins peaked and downtrending Plan: Monitor for any chest pain #BPH On home tamsulosin 0.4 mg Plan: Holding secondary to hypertension #History of upper GI bleed Per chart review patient with history of previous upper GI bleed Admission lab indicative of hemoglobin 12.4, MCV 90, hCG 36 Hemoglobin stable Plan: Monitor with morning labs Hospital Management: Lines: PIV Bowel: Senna Diet: NPO in setting of encephalopathy DVT/PPx: Heparin GI ppx: Protonix Dispo: Pending CT abdomen pelvis for possible intra-abdominal process, hypertension management Code Status: Full Code Patient seen and assessed with attending Dr. Denny Clemons, PGY-1 Attending Provider Attestation/Addendum I reviewed above note and agree with findings and plans. I have also personally examined the patient with medicine team and went over assessment and plan with medical team including buying intern and resident physician.
[2024-07-11] MEDS: LORazepam 2 MG/ML VIAL IVP (16:18)
--- NOTE | 2024-07-11 17:58 | XR_ITS ---
Examination: Abdomen sonogram, Limited Date and time of exam: July 11, 20242002 hrs. Indications: Abdominal pain beginning 3 days ago, CT abdomen pelvis study today abnormal density in the gallbladder Technique: Real-time john scale transabdominal sonographic images of the upper abdomen obtained. Findings: Negative for gallstones Gallbladder wall 0.4 cm no edema Common bile duct 0.3 cm Pancreatic head 1.5 cm Liver 12.5 cm no liver lesions Normal hepatopedal portal venous flow Patent IVC Impression: Negative for cholelithiasis, negative for cholecystitis
--- NOTE | 2024-07-11 19:33 | PC.NURSE ---
called certified hyperbaric technologist re order for us gallbladder, pt calm and asleep right now, ativan iv was given at 16:18pm- process controls technician going to do pt us tonight.
[2024-07-12] VITALS (12 sets, daily range): BP systolic 154–195; BP diastolic 69–90; PULSE 61–103; RESP 17–99; TEMP 36.1–36.9; O2SAT 100
[2024-07-12 05:59] LABS: Basophils % (Auto) 0 % (0-2.5); Eosinophils % (Auto) 0 % (0-10); Hematocrit 37.6 % (41.0-53.0); Hemoglobin 13.1 g/dL (13.5-16.0); Immature Granulocytes % (Auto) 0 % (0-0); Immature Granulocytes Auto 0.02 Thou/mm3 (0.00-0.00); Lymphocytes # (Auto) 0.4 Thou/mm3 (1.0-4.8); Lymphocytes % (Auto) 5 % (10-50); Mean Corpuscular HGB Conc 34.8 g/dl (31.0-37.0); Mean Corpuscular Hemoglobin 31.3 pg (25.0-35.0); Mean Corpuscular Volume 90 fL (80-100); Monocytes # (Auto) 0.7 Thou/mm3 (0.0-0.8); Monocytes % (Auto) 7 % (0-12); Neutrophils # (Auto) 8.5 Thou/mm3 (1.8-7.7); Neutrophils % (Auto) 88 % (37-80); Nucleated Red Blood Cell % 0 /100 WBC (0); Platelet Count 200 Thou/mm3 (140-440); RDW Standard Deviation 39.8 fL (35.1-43.9); Red Blood Count 4.18 Miln/mm3 (4.50-5.90); White Blood Count 9.7 Thou/mm3 (3.8-10.6)
[2024-07-12 06:46] LABS: Alanine Aminotransferase 30 U/L (10-49); Albumin/Globulin Ratio 1.8 (1.2-2.2); Alkaline Phosphatase 64 U/L (46-116); Anion Gap 9 (7-16); Aspartate Amino Transferase 74 U/L (0-34); BUN/Creatinine Ratio 21 Ratio (12-20); Bilirubin,Total 0.8 mg/dL (0.3-1.2); Blood Urea Nitrogen 19 mg/dL (9-23); Calcium 9.4 mg/dL (8.3-10.6); Calcium (Corrected) 9.4 mg/dL (8.5-10.1); Carbon Dioxide 22.6 mMol/L (20.0-31.0); Chloride 111 mMol/L (98-107); Creatinine (Component) 0.9 mg/dL (0.6-1.3); Globulin 2.2 gm/dL (2.3-3.5); Glucose 105 mg/dL (74-106); Magnesium 2.1 mg/dL (1.6-2.6); Osmolality,Calculated 287 (275-295); Phosphorous 2.2 mg/dL (2.4-5.1); Potassium 3.5 mMol/L (3.4-5.1); Sodium 143 mMol/L (136-145); Total Protein 6.2 gm/dL (5.7-8.2); eGFR > 60 See Note
[2024-07-12] MEDS: PANTOPRAZOLE INJ 40 MG VIAL IVP (08:12)
[2024-07-12] MEDS: HEPARIN SOD INJ 5000 UNIT/ML VIAL SC ×2 (08:12→22:28)
[2024-07-12] MEDS: HYDROcodone/APAP 5/325 TABLET 1 TAB PO (08:12)
[2024-07-12] MEDS: Lisinopril 2.5 MG TABLET 10 MG PO ×2 (08:13→10:35)
[2024-07-12] MEDS: amLODIPine BESYLATE 5 MG TABLET 10 MG PO (08:14)
[2024-07-12] MEDS: SENNA TABLET 1 TAB PO (09:26)
[2024-07-12] MEDS: POT PHOS 15 mMol in NS 250 ML 15 MMOL/250 ML BAG 62.5 MMOL IV (09:26)
[2024-07-12] MEDS: LORazepam 2 MG/ML VIAL 0.5 MG IVP ×2 (10:33→15:17)
[2024-07-12] MEDS: LACTULOSE SYRUP 20 GM/30 ML UDC 60 GM PO ×2 (10:44→15:32)
--- NOTE | 2024-07-12 11:28 | PC.SS ---
SS attempted to meet with pt to discuss DC planning, pt is still altered and becoming combative. SS therefore made over the phone contact with pt friend and DM, Luis Enrique Jones [phone]. Per Luis Enrique, pt at baseline is very coherent and with it. SS explained DC planning barriers and inquired if SNF is an option for him being he does live alone. Per Luis Enrique he is open to getting him any help he may need. SS inquired on a preference, Luis Enrique stated he is not too familiar with [facility] other then [facility] SS informed Luis Enrique we will submit to all local facilities and be in contact with him for a choice.
--- NOTE | 2024-07-12 14:20 | ESPR_ITS ---
<Statement entered by Estevan Baldwin MD - 07/18/24 15:04> I reviewed above note and agree with findings and plans. I have also personally examined the patient with medicine team and went over assessment and plan with medical team including editorial intern and resident physician. <Statement entered by Gigi Syed MD - 07/14/24 10:41> Agree with plan and examination finding on the note below. Patient seen and examined at bedside today. Labs and imaging reviewed. Patient care discussed with my attending and co-resident Dr. Mcgraw. Documentation for date of: 07/12/24 Subjective Subjective Interval history: Patient was seen and examined at bedside this AM. No acute exents overnight. Patient tolerating diet, adequate urine output and mentation is confused Patient confused and making nonsensical statements. Abdomen pelvis CT completed on 07/11/2024 findings include: Gastritis, large amount of stool in rectum with thickening of rectal wall, proctitis pattern. Abnormally irregular urinary bladder wall thickening up to 13 mm. Lactulose 60 Mg p.o. x 2 ordered. Fleet enema x 1 ordered, mineral oil enema x 1 ordered. K3.5, Phos 2.2. Potassium phosphate 15 mEq IV x 1 given Exam Vital Signs Temp Pulse Resp BP Pulse Ox O2 Del Method 98.0 F 81 20 173/80 H 100 Room Air 07/12/24 12:00 07/12/24 12:00 07/12/24 12:00 07/12/24 12:00 07/12/24 12:00 07/12/24 12:00 Narrative Exam Constitutional Alert, oriented x 1 [ Person]. Elderly male, bilateral soft wrist restraints. HEENT Vision grossly intact. Patent nares. Trachea midline Respiratory Chest normal on inspection and clear auscultation bilaterally Cardiovascular S1 and S2 audible, RRR. No murmurs carotid bruit. No gross JVD. Abdominal Soft and non tender to palpation in all quadrants. BS + Genitourinary No bladder tenderness, no flank pain. Normal to palpation Musculoskeletal Extremities tone within normal limits. No LE edema. Neurological CN II - XII grossly intact. Extremity motor and sensation grossly intact. Skin Warm, dry and intact. No apparent lesions. Psychiatric Patient has good affect, is cooperative Objective Labs 07/12/24 05:45 07/12/24 05:45 Labs: Laboratory Results - last 24 hr 07/12/24 05:45 WBC 9.7 RBC 4.18 L Hgb 13.1 L Hct 37.6 L MCV 90 MCH 31.3 MCHC 34.8 RDW Std Deviation 39.8 Plt Count 200 D Neut % (Auto) 88 H Lymph % (Auto) 5 L [place] % (Auto) 7 Eos % (Auto) 0 Baso % (Auto) 0 Neut # (Auto) 8.5 H Lymph # (Auto) 0.4 L [place] # (Auto) 0.7 Eos # (Auto) 0.0 Baso # (Auto) 0.0 Immature Gran # (Auto) 0.02 H Absolute Nucleated RBC 0.00 Immature Gran % 0 Nucleated RBC % 0 Sodium 143 Potassium 3.5 Chloride 111 H Carbon Dioxide 22.6 Anion Gap 9 BUN 19 Creatinine 0.9 Estim Creat Clear Calc 52.0 L eGFR > 60 BUN/Creatinine Ratio 21 H Glucose 105 Calculated Osmolality 287 Calcium 9.4 Corrected Calcium 9.4 Phosphorus 2.2 L Magnesium 2.1 Total Bilirubin 0.8 D AST 74 H ALT 30 Alkaline Phosphatase 64 Total Protein 6.2 Albumin 4.0 Globulin 2.2 L Albumin/Globulin Ratio 1.8 Quality Measures Quality Measures none Advance care planning discussed with:: other Assessment & Plan Assessment Current Active Medications: Generic Name Dose Route Start Last Admin Trade Name mEmett PRN Reason Stop Dose Admin Acetaminophen 650 mg 07/12/24 07:55 Acetaminophen 325 Mg Tablet PO 08/08/24 16:27 Q6H PRN Pain 1-6 and/or Fever 100.1 Hydrocodone Bitart/Acetaminophen 1 tab 07/12/24 07:53 07/12/24 08:12 Hydrocodone/Apap 5/325 Tablet PO 07/17/24 07:52 1 tab Q6HR PRN Administration Pain 7-10 Amlodipine Besylate 10 mg 07/10/24 09:00 07/12/24 08:14 Amlodipine Besylate 5 Mg Tablet PO 08/09/24 08:59 10 mg QDAY KARLY Administration Heparin Sodium (Porcine) 5,000 unit 07/09/24 16:45 07/12/24 08:12 Heparin Sod Inj 5000 Unit/Ml Vial SC 07/23/24 16:44 5,000 unit Q12HR KARLY Administration Labetalol HCl 10 mg 07/10/24 11:37 Labetalol Inj 5 Mg/Ml Vial 20 Ml IVP 08/08/24 16:35 Q6H PRN SYSTOLIC blood pressure > 170 Lisinopril 20 mg 07/13/24 09:00 Lisinopril 20 Mg Tablet PO 08/12/24 08:59 QDAY KARLY Ondansetron HCl 4 mg 07/09/24 16:28 Ondansetron Inj 2 Mg/Ml Inj 2 Ml IV 08/08/24 16:27 Q6H PRN NAUSEA OR VOMITING Protocol Pantoprazole Sodium 40 mg 07/10/24 09:00 07/12/24 08:12 Pantoprazole Inj 40 Mg Vial IVP 08/09/24 08:59 40 mg QDAY KARLY Administration Sennosides 1 tab 07/11/24 17:00 07/12/24 09:26 Senna Tablet PO 08/10/24 16:59 1 tab QDAY PRN Administration CONSTIPATION Protocol Plan 84-year-old male patient with significant medical history for BPH and hypertension admitted for hypertensive emergency. #Acute encephalopathy #Agitation secondary to abdominal pain #Stool impaction Urinalysis and toxicology negative Head CT and MRI unremarkable for hemorrhage or midline shift MRI brain does not show any acute findings but there are prominent chronic microvascular white matter change Abdomen pelvis CT completed on 07/11/2024 findings include: Gastritis, large amount of stool in rectum with thickening of rectal wall, proctitis pattern. Abnormally irregular urinary bladder wall thickening up to 13 mm. Plan: - Neurochecks every 4 hour ? Lactulose 60 Mg p.o. x 2 ordered ? To start on lactulose 30 Mg p.o. 3 times daily from tomorrow ? Glycerin suppository x 1 ? Fleet enema x 1 ordered ? Mineral oil enema x 1 ordered ? To consider manual disimpaction if patient does not have a bowel movement # Hypertensive emergency?resolved # Primary hypertension On admission patient complaining of dizziness ED vitals significant for blood pressure of 217/84---> 154/69 Patient received clonidine in ED Blood pressure reduced by 20 to 25% within first 24 hours Plan: - Continue amlodipine 10 mg daily - Continue lisinopril 10 mg daily - IV labetalol 10 mg as needed every 6 hours for SBP >180 # NSTEMI type I versus type II Likely type II due to hypertensive emergency. On admission patient with elevated troponins of 0.062 EKG showed normal sinus rhythm Troponins peaked and downtrending #BPH Home medication terazosin 6 Mg p.o. at bedtime Plan: ?Will resume home medication after 48 hours #History of upper GI bleed Per chart review patient with history of previous upper GI bleed Admission lab indicative of hemoglobin 12.4, MCV 90, hCG 36 Hemoglobin stable #Hypophosphatemia K3.5, Phos 2.2. Potassium phosphate 15 mEq IV x 1 given Health maintenance: Disposition: Stool softeners and laxatives for bowel movement Diet: Dysphagia 1 Lines: pIVs GI Prophylaxis: None Thrombo Prophylaxis: Heparin Code status: FULL CODE Plan of care discussed with Attending Dr. Baldwin and PGY3 Dr. Yahaira Mcgraw MD PGY 1
--- NOTE | 2024-07-12 15:22 | PC.CC ---
PASSR Level 1 complete and downloaded; Level 2 not required.
--- NOTE | 2024-07-12 17:05 | PC.NURSE ---
Patient's BP is 195/90, HR-93. Patient still on restraint and keep on being combative. MD notified.
[2024-07-12] MEDS: hydrALAZINE INJ 20 MG/ML VIAL 10 MG IV (17:28)
--- NOTE | 2024-07-12 18:03 | PC.NURSE ---
Patient's BP after hydralazine IVP 175/82, HR-83. aware.
[2024-07-13] VITALS (10 sets, daily range): BP systolic 141–172; BP diastolic 66–80; PULSE 77–101; RESP 16–20; TEMP 36.4–36.8; O2SAT 96–100
[2024-07-13 08:08] LABS: Basophils % (Auto) 0 % (0-2.5); Eosinophils % (Auto) 0 % (0-10); Hematocrit 37.5 % (41.0-53.0); Hemoglobin 13.1 g/dL (13.5-16.0); Immature Granulocytes % (Auto) 0 % (0-0); Immature Granulocytes Auto 0.04 Thou/mm3 (0.00-0.00); Lymphocytes # (Auto) 0.3 Thou/mm3 (1.0-4.8); Lymphocytes % (Auto) 2 % (10-50); Mean Corpuscular HGB Conc 34.9 g/dl (31.0-37.0); Mean Corpuscular Hemoglobin 31.6 pg (25.0-35.0); Mean Corpuscular Volume 90 fL (80-100); Monocytes # (Auto) 0.8 Thou/mm3 (0.0-0.8); Monocytes % (Auto) 6 % (0-12); Neutrophils # (Auto) 12.3 Thou/mm3 (1.8-7.7); Neutrophils % (Auto) 91 % (37-80); Nucleated Red Blood Cell % 0 /100 WBC (0); Platelet Count 238 Thou/mm3 (140-440); RDW Standard Deviation 40.5 fL (35.1-43.9); Red Blood Count 4.15 Miln/mm3 (4.50-5.90); White Blood Count 13.5 Thou/mm3 (3.8-10.6)
[2024-07-13 08:25] LABS: Alanine Aminotransferase 36 U/L (10-49); Albumin, Serum 4.1 gm/dL (3.4-4.8); Albumin/Globulin Ratio 1.7 (1.2-2.2); Alkaline Phosphatase 72 U/L (46-116); Anion Gap 7 (7-16); Aspartate Amino Transferase 58 U/L (0-34); BUN/Creatinine Ratio 19 Ratio (12-20); Bilirubin,Total 0.9 mg/dL (0.3-1.2); Blood Urea Nitrogen 19 mg/dL (9-23); Calcium 9.9 mg/dL (8.3-10.6); Calcium (Corrected) 9.9 mg/dL (8.5-10.1); Chloride 113 mMol/L (98-107); Estimated Creatinine Clearance 46.8 mL/min (>60); Globulin 2.4 gm/dL (2.3-3.5); Glucose 121 mg/dL (74-106); Magnesium 2.3 mg/dL (1.6-2.6); Osmolality,Calculated 291 (275-295); Phosphorous 3.1 mg/dL (2.4-5.1); Potassium 3.6 mMol/L (3.4-5.1); Sodium 145 mMol/L (136-145); Total Protein 6.5 gm/dL (5.7-8.2); eGFR > 60 See Note
[2024-07-13] MEDS: HEPARIN SOD INJ 5000 UNIT/ML VIAL SC ×2 (09:29→20:09)
[2024-07-13] MEDS: amLODIPine BESYLATE 5 MG TABLET 10 MG PO (09:29)
[2024-07-13] MEDS: Lisinopril 20 MG TABLET PO ×2 (09:29→12:12)
--- NOTE | 2024-07-13 10:09 | PC.SS ---
Addendum entered by FRANCISCO JAVIER Warren 07/13/24 14:58: Rounding note: patient is on restraints, team is aware the patient needs to be off of restraints for at least 24hrs before d/c to SNF. Original Note: SS follow up: Spoke with patient's friend, Luis Enrique Jones [phone] and presented SNF options, Luis Enrique has elected [facility].
--- NOTE | 2024-07-13 10:51 | PC.NURSE ---
Dr. Mcgraw removed restraint orders for patient this morning. Had to call Dr. Clemons patient was trying to climb out of bed and getting aggressive with one on one sitter. Restraint back on patient with orders in place. Will continue to monitor patient.
[2024-07-13] MEDS: HALOPERIDOL LACT INJ 5 MG/ML VIAL 10 MG IV (10:58)
[2024-07-13] MEDS: RINGERS LACTATED 1000 ML 1,000 ML 70 ML IV (12:13)
--- NOTE | 2024-07-13 12:21 | PC.NURSE ---
Patient spitting out crushed medication in apple sauce. Will continue to monitor
--- NOTE | 2024-07-13 13:26 | ESPR_ITS ---
<Statement entered by Mick Mendoza MD - 07/14/24 17:48> I discussed with and supervised the food and beverage intern physician involved in the care of this patient. Patient assessment and plan was discussed with entire medicine team, including my attending. I agree with the assessment and plan as documented by food and beverage intern doctor. Patient care was discussed with my attending physician Dr. Bruno Mendoza, PGY-2 Documentation for date of: 07/13/24 Subjective Subjective Interval history: Patient was seen and examined at bedside this AM. No acute exents overnight. Patient tolerating diet, adequate urine output and mentation is confused Patient says he feels great. Oriented to person and place. Patient had 12 bowel movements overnight. Discontinued lactulose. Continue MiraLAX Patient tolerating minimal diet. Will start on lactated Ringer's IVF @ 70 cc/h Exam Vital Signs Temp Pulse Resp BP Pulse Ox O2 Del Method 97.8 F 101 H 16 164/80 H 100 Room Air 07/13/24 12:17 07/13/24 12:17 07/13/24 12:17 07/13/24 12:17 07/13/24 12:17 07/13/24 12:17 Narrative Exam Constitutional Alert, oriented x 2 [ Person,Place]. Elderly male, bilateral soft wrist restraints. HEENT Vision grossly intact. Patent nares. Trachea midline Respiratory Chest normal on inspection and clear auscultation bilaterally Cardiovascular S1 and S2 audible, RRR. No murmurs carotid bruit. No gross JVD. Abdominal Soft and non tender to palpation in all quadrants. BS + Genitourinary No bladder tenderness, no flank pain. Normal to palpation Musculoskeletal Extremities tone within normal limits. No LE edema. Neurological CN II - XII grossly intact. Extremity motor and sensation grossly intact. Skin Warm, dry and intact. No apparent lesions. Psychiatric Patient has good affect, is cooperative Objective Labs 07/15/24 05:04 07/15/24 05:04 Labs: Laboratory Results - last 24 hr 07/13/24 07:45 WBC 13.5 H RBC 4.15 L Hgb 13.1 L Hct 37.5 L MCV 90 MCH 31.6 MCHC 34.9 RDW Std Deviation 40.5 Plt Count 238 D Neut % (Auto) 91 H Lymph % (Auto) 2 L [place] % (Auto) 6 Eos % (Auto) 0 Baso % (Auto) 0 Neut # (Auto) 12.3 H Lymph # (Auto) 0.[address] [place] # (Auto) 0.8 Eos # (Auto) 0.0 Baso # (Auto) 0.0 Immature Gran # (Auto) 0.04 H Absolute Nucleated RBC 0.00 Immature Gran % 0 Nucleated RBC % 0 Sodium 145 Potassium 3.6 Chloride 113 H Carbon Dioxide 25.0 Anion Gap 7 BUN 19 Creatinine 1.0 Estim Creat Clear Calc 46.8 L eGFR > 60 BUN/Creatinine Ratio 19 Glucose 121 H Calculated Osmolality 291 Calcium 9.9 Corrected Calcium 9.9 Phosphorus 3.1 Magnesium 2.3 Total Bilirubin 0.9 AST 58 H ALT 36 Alkaline Phosphatase 72 Total Protein 6.5 Albumin 4.1 Globulin 2.4 Albumin/Globulin Ratio 1.7 Quality Measures Quality Measures none Advance care planning discussed with:: other Assessment & Plan Assessment Current Active Medications: Generic Name Dose Route Start Last Admin Trade Name Freq PRN Reason Stop Dose Admin Acetaminophen 650 mg 07/12/24 07:55 Acetaminophen 325 Mg Tablet PO 08/08/24 16:27 Q6H PRN Pain 1-6 and/or Fever 100.1 Hydrocodone Bitart/Acetaminophen 1 tab 07/12/24 07:53 07/12/24 08:12 Hydrocodone/Apap 5/325 Tablet PO 07/17/24 07:52 1 tab Q6HR PRN Administration Pain 7-10 Amlodipine Besylate 10 mg 07/10/24 09:00 07/13/24 09:29 Amlodipine Besylate 5 Mg Tablet PO 08/09/24 08:59 10 mg QDAY KARLY Administration Heparin Sodium (Porcine) 5,000 unit 07/09/24 16:45 07/13/24 09:29 Heparin Sod Inj 5000 Unit/Ml Vial SC 07/23/24 16:44 5,000 unit Q12HR KARLY Administration Lactated Ringer's 1,000 mls @ 70 mls/hr 07/13/24 11:03 07/13/24 12:13 Lactated Ringers IV 07/14/24 01:20 70 mls/hr .[id number] ONE Administration Labetalol HCl 10 mg 07/12/24 15:36 Labetalol Inj 5 Mg/Ml Vial 20 Ml IVP 08/08/24 16:35 Q6H PRN SYSTOLIC blood pressure > 180 Lisinopril 40 mg 07/14/24 09:00 Lisinopril 20 Mg Tablet PO 08/13/24 08:59 QDAY [facility] Melatonin 6 mg 07/13/24 21:00 Melatonin 3 Mg Tablet PO 08/12/24 20:59 HS [facility] Ondansetron HCl 4 mg 07/09/24 16:28 Ondansetron Inj 2 Mg/Ml Inj 2 Ml IV 08/08/24 16:27 Q6H PRN NAUSEA OR VOMITING Protocol Polyethylene Glycol 17 gm 07/12/24 21:00 07/13/24 09:30 Polyethylene Glycol 17 Gm Packet PO 08/11/24 20:59 Not Given BID [facility] Sennosides 1 tab 07/13/24 09:00 07/13/24 09:30 Senna Tablet PO 08/12/24 08:59 Not Given QDAY [facility] Protocol Terazosin HCl 5 mg 07/13/24 21:00 Terazosin Hcl 5 Mg Capsule PO 08/12/24 20:59 [facility] Plan 84-year-old male patient with significant medical history for BPH and hypertension admitted for hypertensive emergency. #Acute encephalopathy #Agitation secondary to abdominal pain #Stool impaction Urinalysis and toxicology negative Head CT and MRI unremarkable for hemorrhage or midline shift MRI brain does not show any acute findings but there are prominent chronic microvascular white matter change Abdomen pelvis CT completed on 07/11/2024 findings include: Gastritis, large amount of stool in rectum with thickening of rectal wall, proctitis pattern. Abnormally irregular urinary bladder wall thickening up to 13 mm. Patient had 12 bowel movements overnight. Discontinued lactulose. Continue MiraLAX Patient tolerating minimal diet. Will start on lactated Ringer's IVF @ 70 cc/h Plan: - Neurochecks every 4 hour ? Discontinued lactulose 30 Mg p.o. 3 times daily from tomorrow ? Continue MiraLAX 1 packet twice daily ? Continue senna 1 tab p.o. daily # Hypertensive emergency?resolved # Primary hypertension On admission patient complaining of dizziness ED vitals significant for blood pressure of 217/84---> 154/69 Patient received clonidine in ED Blood pressure reduced by 20 to 25% within first 24 hours Plan: - Continue amlodipine 10 mg daily - Increased lisinopril to 40 Mg p.o. daily - IV labetalol 10 mg as needed every 6 hours for SBP >180 # NSTEMI type I versus type II Likely type II due to hypertensive emergency. On admission patient with elevated troponins of 0.062 EKG showed normal sinus rhythm Troponins peaked and downtrending #BPH Home medication terazosin 6 Mg p.o. at bedtime Plan: ? Resumed home medication terazosin 6 Mg p.o. at bedtime #History of upper GI bleed Per chart review patient with history of previous upper GI bleed Admission lab indicative of hemoglobin 12.4, MCV 90, hCG 36 Hemoglobin stable #Hypophosphatemia?resolved Phos 2.2 ---> 3.1 Health maintenance: Disposition: Stool softeners and laxatives for bowel movement. For SNF placement once off restraints for 24 hours Diet: Dysphagia 1 Lines: pIVs GI Prophylaxis: None Thrombo Prophylaxis: Heparin Code status: FULL CODE Plan of care discussed with Attending Dr. Monroe and PGY2 Dr. Kelly Mcgraw MD PGY 1 Attending Provider Attestation/Addendum I attest that I was physically present for the evaluation, physical examination, lab and imaging review of the patient with the residents. I discussed the case with the residents and agree with the findings and plans of care as documented above. At bedside today, patient appears comfortable. Continues to be confused. He had multiple bowel movements overnight. We will discontinue lactulose and continue MiraLAX. He is only tolerating minimal amount of diet, continues to be on Ringer lactate at 70 cc/h. Continues to be on soft restraints. Vitals and lab results stable. We will try to remove the restraints once patient is able to follow commands. Nickolas Monroe MD
--- NOTE | 2024-07-13 14:42 | EKG_ITS ---
[facility] Test Date: 2024-07-13 Pat Name: CHIQUIS SINCLAIR Department: Room: S362A Gender: Male Transliterator: JEANCARLOS : 1940 Requested By: Soto Mcgraw Order Number: [id number] Reading MD: Soto Mcgraw Measurements Intervals [place] Rate: 92 P: 67 LA: 131 QRS: 57 QRSD: 90 T: -87 QT: 371 QTc: 461 Interpretive Statements SINUS RHYTHM POSSIBLE RIGHT VENTRICULAR CONDUCTION DELAY [RSR (QR) IN V1/V2] ST DEVIATION AND MODERATE T-WAVE ABNORMALITY, CONSIDER ANTEROLATERAL ISCHEMIA [-0.1+ mV T WAVE IN V3-V6] ST DEVIATION AND MODERATE T-WAVE ABNORMALITY, CONSIDER INFERIOR ISCHEMIA [-0.1+ mV T WAVE IN II/aVF] Compared to ECG 07/09/2024 13:18:08 No significant changes /store/S0/[id number].pdf
--- NOTE | 2024-07-13 16:39 | PC.NURSE ---
Notified Dr. Whitfield of critical lab value troponin of 0.090. Will continue to monitor patient.
[2024-07-13] MEDS: TERAZOSIN HCL 5 MG CAPSULE PO (20:08)
[2024-07-13] MEDS: POLYETHYLENE GLYCOL 17 GM PACKET PO (20:09)
[2024-07-14] VITALS (8 sets, daily range): BP systolic 109–122; BP diastolic 38–72; PULSE 60–82; RESP 12–20; TEMP 36–36.7; O2SAT 87–99; BMI 20.5
[2024-07-14 06:05] LABS: Basophils % (Auto) 0 % (0-2.5); Eosinophils % (Auto) 0 % (0-10); Hematocrit 32.4 % (41.0-53.0); Hemoglobin 10.9 g/dL (13.5-16.0); Immature Granulocytes % (Auto) 0 % (0-0); Immature Granulocytes Auto 0.01 Thou/mm3 (0.00-0.00); Lymphocytes # (Auto) 0.4 Thou/mm3 (1.0-4.8); Lymphocytes % (Auto) 7 % (10-50); Mean Corpuscular HGB Conc 33.6 g/dl (31.0-37.0); Mean Corpuscular Hemoglobin 30.8 pg (25.0-35.0); Mean Corpuscular Volume 92 fL (80-100); Monocytes # (Auto) 0.5 Thou/mm3 (0.0-0.8); Monocytes % (Auto) 8 % (0-12); Neutrophils # (Auto) 4.6 Thou/mm3 (1.8-7.7); Neutrophils % (Auto) 84 % (37-80); Nucleated Red Blood Cell % 0 /100 WBC (0); Platelet Count 180 Thou/mm3 (140-440); RDW Standard Deviation 40.7 fL (35.1-43.9); Red Blood Count 3.54 Miln/mm3 (4.50-5.90); White Blood Count 5.5 Thou/mm3 (3.8-10.6)
[2024-07-14 06:40] LABS: Alanine Aminotransferase 30 U/L (10-49); Albumin, Serum 3.5 gm/dL (3.4-4.8); Albumin/Globulin Ratio 1.8 (1.2-2.2); Alkaline Phosphatase 57 U/L (46-116); Anion Gap 9 (7-16); Aspartate Amino Transferase 38 U/L (0-34); BUN/Creatinine Ratio 29 Ratio (12-20); Bilirubin,Total 0.8 mg/dL (0.3-1.2); Blood Urea Nitrogen 26 mg/dL (9-23); Calcium 9.3 mg/dL (8.3-10.6); Calcium (Corrected) 9.7 mg/dL (8.5-10.1); Carbon Dioxide 26.7 mMol/L (20.0-31.0); Chloride 111 mMol/L (98-107); Creatinine (Component) 0.9 mg/dL (0.6-1.3); Globulin 1.9 gm/dL (2.3-3.5); Glucose 103 mg/dL (74-106); Magnesium 2.2 mg/dL (1.6-2.6); Osmolality,Calculated 297 (275-295); Phosphorous 2.6 mg/dL (2.4-5.1); Potassium 3.5 mMol/L (3.4-5.1); Sodium 147 mMol/L (136-145); Total Protein 5.4 gm/dL (5.7-8.2); eGFR > 60 See Note
[2024-07-14] MEDS: HEPARIN SOD INJ 5000 UNIT/ML VIAL SC ×2 (08:17→21:03)
[2024-07-14] MEDS: POLYETHYLENE GLYCOL 17 GM PACKET PO ×2 (08:18→20:58)
[2024-07-14] MEDS: Lisinopril 20 MG TABLET 40 MG PO (08:18)
[2024-07-14] MEDS: amLODIPine BESYLATE 5 MG TABLET 10 MG PO (08:22)
[2024-07-14] MEDS: SENNA TABLET 1 TAB PO (08:23)
[2024-07-14] MEDS: POTASSIUM CHL 10 mEq IVPB 10 MEQ/100 ML BAG 50 MEQ IV ×4 (08:38→11:57)
[2024-07-14] MEDS: DEXTROSE 5%-WATER 1,000 ML 100 ML IV (08:38)
--- NOTE | 2024-07-14 10:55 | ESPR_ITS ---
<Statement entered by Mick Mendoza MD - 07/14/24 18:07> Much improvement of mentation compared to yesterday. Patient was taken off soft restraints this morning. If stable, most likely to be d/c to SNF within 24-48 hours. I discussed with and supervised the architect internship physician involved in the care of this patient. Patient assessment and plan was discussed with entire medicine team, including my attending. I agree with the assessment and plan as documented by architect internship doctor. Patient care was discussed with my attending physician Dr. Bruno Mendoza, PGY-2 Documentation for date of: 07/14/24 Subjective Subjective Interval history: Patient was seen and examined at bedside this AM. Restraints were removed this morning Patient tolerating diet, adequate urine output and mentation is improved Patient says he feels great. Oriented to person and place. NA 137, K3.5. Started on D5W at 50 cc/h. Repleted with KCl 40 mEq Exam Vital Signs Temp Pulse Resp BP Pulse Ox O2 Del Method 96.8 F 80 20 118/72 95 Room Air 07/14/24 08:00 07/14/24 08:22 07/14/24 08:00 07/14/24 08:22 07/14/24 08:00 07/14/24 08:00 Narrative Exam Constitutional Alert, oriented x 2 [ Person,Place]. Elderly male HEENT Vision grossly intact. Patent nares. Trachea midline Respiratory Chest normal on inspection and clear auscultation bilaterally Cardiovascular S1 and S2 audible, RRR. No murmurs carotid bruit. No gross JVD. Abdominal Soft and non tender to palpation in all quadrants. BS + Genitourinary No bladder tenderness, no flank pain. Normal to palpation Musculoskeletal Extremities tone within normal limits. No LE edema. Neurological CN II - XII grossly intact. Extremity motor and sensation grossly intact. Skin Warm, dry and intact. No apparent lesions. Psychiatric Patient has good affect, is cooperative Objective Labs 07/15/24 05:04 07/15/24 05:04 Labs: Laboratory Results - last 24 hr 07/13/24 07/14/24 15:00 05:30 WBC 5.5 D RBC 3.54 L Hgb 10.9 L D Hct 32.4 L MCV 92 MCH 30.8 MCHC 33.6 RDW Std Deviation 40.7 Plt Count 180 D Neut % (Auto) 84 H Lymph % (Auto) 7 L [place] % (Auto) 8 Eos % (Auto) 0 Baso % (Auto) 0 Neut # (Auto) 4.6 Lymph # (Auto) 0.4 L [place] # (Auto) 0.5 Eos # (Auto) 0.0 Baso # (Auto) 0.0 Immature Gran # (Auto) 0.01 H Absolute Nucleated RBC 0.00 Immature Gran % 0 Nucleated RBC % 0 Sodium 147 H Potassium 3.5 Chloride 111 H Carbon Dioxide 26.7 Anion Gap 9 BUN 26 H Creatinine 0.9 Estim Creat Clear Calc 52.0 L eGFR > 60 BUN/Creatinine Ratio 29 H Glucose 103 Calculated Osmolality 297 H Calcium 9.3 Corrected Calcium 9.7 Phosphorus 2.6 Magnesium 2.2 Total Bilirubin 0.8 AST 38 H ALT 30 Alkaline Phosphatase 57 D Troponin I 0.090 H* Total Protein 5.4 L Albumin 3.5 D Globulin 1.9 L Albumin/Globulin Ratio 1.8 Quality Measures Quality Measures none Advance care planning discussed with:: other Assessment & Plan Assessment Current Active Medications: Generic Name Dose Route Start Last Admin Trade Name Freq PRN Reason Stop Dose Admin Acetaminophen 650 mg 07/12/24 07:55 Acetaminophen 325 Mg Tablet PO 08/08/24 16:27 Q6H PRN Pain 1-6 and/or Fever 100.1 Hydrocodone Bitart/Acetaminophen 1 tab 07/12/24 07:53 07/12/24 08:12 Hydrocodone/Apap 5/325 Tablet PO 07/17/24 07:52 1 tab Q6HR PRN Administration Pain 7-10 Amlodipine Besylate 10 mg 07/10/24 09:00 07/14/24 08:22 Amlodipine Besylate 5 Mg Tablet PO 08/09/24 08:59 10 mg QDAY KARLY Administration Heparin Sodium (Porcine) 5,000 unit 07/09/24 16:45 07/14/24 08:17 Heparin Sod Inj 5000 Unit/Ml Vial SC 07/23/24 16:44 5,000 unit Q12HR KARLY Administration Potassium Chloride 10 meq in 100 mls @ 50 mls/hr 07/14/24 08:19 07/14/24 10:53 Kcl Ivpb IV 07/14/24 12:18 50 mls/hr Q1H KARLY Administration Dextrose 500 mls @ 100 mls/hr 07/14/24 08:45 07/14/24 08:38 D5w IV 07/14/24 13:44 100 mls/hr .Q5H ONE Administration Labetalol HCl 10 mg 07/12/24 15:36 Labetalol Inj 5 Mg/Ml Vial 20 Ml IVP 08/08/24 16:35 Q6H PRN SYSTOLIC blood pressure > 180 Lisinopril 40 mg 07/14/24 09:00 07/14/24 08:18 Lisinopril 20 Mg Tablet PO 08/13/24 08:59 40 mg QDAY KARLY Administration Melatonin 6 mg 07/13/24 21:00 07/14/24 00:49 Melatonin 3 Mg Tablet PO 08/12/24 20:59 Not Given HS KARLY Ondansetron HCl 4 mg 07/09/24 16:28 Ondansetron Inj 2 Mg/Ml Inj 2 Ml IV 08/08/24 16:27 Q6H PRN NAUSEA OR VOMITING Protocol Polyethylene Glycol 17 gm 07/12/24 21:00 07/14/24 08:18 Polyethylene Glycol 17 Gm Packet PO 08/11/24 20:59 17 gm BID KARLY Administration Sennosides 1 tab 07/13/24 09:00 07/14/24 08:23 Senna Tablet PO 08/12/24 08:59 1 tab QDAY KARLY Administration Protocol Terazosin HCl 5 mg 07/13/24 21:00 07/13/24 20:08 Terazosin Hcl 5 Mg Capsule PO 08/12/24 20:59 5 mg HS KARLY Administration Plan 84-year-old male patient with significant medical history for BPH and hypertension admitted for hypertensive emergency. #Acute encephalopathy?resolving #Agitation secondary to abdominal pain?resolved #Stool impaction resolving Urinalysis and toxicology negative Head CT and MRI unremarkable for hemorrhage or midline shift MRI brain does not show any acute findings but there are prominent chronic microvascular white matter change Abdomen pelvis CT completed on 07/11/2024 findings include: Gastritis, large amount of stool in rectum with thickening of rectal wall, proctitis pattern. Abnormally irregular urinary bladder wall thickening up to 13 mm. Patient oriented to person and place today Plan: - Neurochecks every 4 hour ? Continue MiraLAX 1 packet twice daily ? Continue senna 1 tab p.o. daily #Hyperosmolar hyponatremia?mild NA 137, OSM 297 K3.5 Plan: ? D5W 500 mL IV fluid at 100 cc/h ? KCl 40 mEq IV x 1 # Hypertensive emergency?resolved # Primary hypertension On admission patient complaining of dizziness ED vitals significant for blood pressure of 217/84---> 154/69 Patient received clonidine in ED Blood pressure reduced by 20 to 25% within first 24 hours Plan: - Continue amlodipine 10 mg daily - Continue lisinopril to 40 Mg p.o. daily - IV labetalol 10 mg as needed every 6 hours for SBP >180 # NSTEMI type I versus type II Likely type II due to hypertensive emergency. On admission patient with elevated troponins of 0.062 EKG showed normal sinus rhythm Troponins peaked and downtrending #BPH Home medication terazosin 6 Mg p.o. at bedtime Plan: ? Continue home medication terazosin 6 Mg p.o. at bedtime #History of upper GI bleed Per chart review patient with history of previous upper GI bleed Admission lab indicative of hemoglobin 12.4, MCV 90, hCG 36 Hemoglobin stable #Hypophosphatemia?resolved Phos 2.2 ---> 3.1 Health maintenance: Disposition: Stool softeners and laxatives for bowel movement. For SNF placement once off restraints for 24 hours Diet: Dysphagia 1 Lines: pIVs GI Prophylaxis: None Thrombo Prophylaxis: Heparin Code status: FULL CODE Plan of care discussed with Attending Dr. Monroe and PGY2 Dr. Kelly Mcgraw MD PGY 1 Attending Provider Attestation/Addendum I attest that I was physically present for the evaluation, physical examination, lab and imaging review of the patient with the residents. I discussed the case with the residents and agree with the findings and plans of care as documented above. Patient continues to be alert but confused, oriented x 2. Appears more calm and is able to follow commands. We will remove the restraints since this morning. We will encourage oral intake and continue with bowel regimen. Noted to have potassium of 3.5, we will replete 40 mEq of potassium chloride. Plan for discharge tomorrow after patient is off restraints for 24 hours and continues to have stable mentation. Nickolas Monroe MD
--- NOTE | 2024-07-14 16:59 | PC.SS ---
SS follow up: spoke with Lily at [facility], informs she will do an onsite tomorrow morning to determine if able to accept the patient.
[2024-07-14] MEDS: MELATONIN 3 MG TABLET PO (20:58)
[2024-07-15] VITALS (10 sets, daily range): BP systolic 107–133; BP diastolic 50–68; PULSE 51–81; RESP 15–18; TEMP 36.3–37.1; O2SAT 97–98
[2024-07-15 05:43] LABS: Basophils % (Auto) 0 % (0-2.5); Eosinophils # (Auto) 0.1 Thou/mm3 (0.0-0.5); Eosinophils % (Auto) 1 % (0-10); Hematocrit 31.7 % (41.0-53.0); Hemoglobin 10.9 g/dL (13.5-16.0); Immature Granulocytes % (Auto) 0 % (0-0); Immature Granulocytes Auto 0.02 Thou/mm3 (0.00-0.00); Lymphocytes # (Auto) 0.6 Thou/mm3 (1.0-4.8); Lymphocytes % (Auto) 11 % (10-50); Mean Corpuscular HGB Conc 34.4 g/dl (31.0-37.0); Mean Corpuscular Hemoglobin 31.4 pg (25.0-35.0); Mean Corpuscular Volume 91 fL (80-100); Monocytes # (Auto) 0.6 Thou/mm3 (0.0-0.8); Monocytes % (Auto) 10 % (0-12); Neutrophils # (Auto) 4.6 Thou/mm3 (1.8-7.7); Neutrophils % (Auto) 77 % (37-80); Nucleated Red Blood Cell % 0 /100 WBC (0); Platelet Count 228 Thou/mm3 (140-440); RDW Standard Deviation 40.3 fL (35.1-43.9); Red Blood Count 3.47 Miln/mm3 (4.50-5.90); White Blood Count 5.9 Thou/mm3 (3.8-10.6)
[2024-07-15 06:11] LABS: Alanine Aminotransferase 27 U/L (10-49); Albumin, Serum 3.3 gm/dL (3.4-4.8); Albumin/Globulin Ratio 1.8 (1.2-2.2); Alkaline Phosphatase 53 U/L (46-116); Anion Gap 5 (7-16); Aspartate Amino Transferase 32 U/L (0-34); BUN/Creatinine Ratio 30 Ratio (12-20); Bilirubin,Total 0.8 mg/dL (0.3-1.2); Blood Urea Nitrogen 27 mg/dL (9-23); Calcium 8.9 mg/dL (8.3-10.6); Calcium (Corrected) 9.5 mg/dL (8.5-10.1); Carbon Dioxide 27.3 mMol/L (20.0-31.0); Chloride 108 mMol/L (98-107); Creatinine (Component) 0.9 mg/dL (0.6-1.3); Globulin 1.8 gm/dL (2.3-3.5); Glucose 97 mg/dL (74-106); Magnesium 2.2 mg/dL (1.6-2.6); Osmolality,Calculated 284 (275-295); Phosphorous 1.9 mg/dL (2.4-5.1); Potassium 3.9 mMol/L (3.4-5.1); Sodium 140 mMol/L (136-145); Total Protein 5.1 gm/dL (5.7-8.2); eGFR > 60 See Note
[2024-07-15] MEDS: HEPARIN SOD INJ 5000 UNIT/ML VIAL SC (10:15)
[2024-07-15] MEDS: Lisinopril 20 MG TABLET 40 MG PO (10:15)
[2024-07-15] MEDS: amLODIPine BESYLATE 5 MG TABLET 10 MG PO (10:16)
[2024-07-15] MEDS: SENNA TABLET 1 TAB PO (10:17)
--- NOTE | 2024-07-15 12:45 | PC.SS ---
Late Entry: SS met with pt and his next of kin at bedside Luis Enrique, to inform them of DC today to [facility]. SS brought pt clothing to bedside. Luis Enrique stated he would go grab lunch and can meet the pt at [facility] when he heads over. ETA still pending at this time as pt still has FC and it needs to be removed prior to DC.
--- NOTE | 2024-07-15 15:06 | PC.SS ---
Lily with [facility] did onsite visit confirmed she can accept pt. [facility] booked via [facility]. SS also informed her pt is on [facility], she stated it is okay they can take him. SS set up transport via [facility], pending ETA with [facility].
--- NOTE | 2024-07-15 15:24 | PC.SS ---
SS spoke to Humaira at [facility] set for 1800 Stefany, UC made aware.
--- NOTE | 2024-07-15 18:30 | PD.RESDS ---
Planned Discharge Date 07/15/24 DS: Providers Provider Date of admission: 07/10/24 14:50 Primary care physician: Physician No Primary/Family Admitting Provider: Estevan Baldwin MD Attending Provider on Admission: Estevan Baldwin MD Consults: 07/10/24 08:00 Referral - CARE TRANSITION MGR Regulator Tester Routine Comment: trini Bermudez Referral Speech Therapy Routine Comment: Attending Provider on DC: Mick Mendoza MD Discharging Provider: Mick Mendoza MD DS: Diagnosis Problem List Completed Was Problem List Reviewed/Reconciled?: Yes Hospital Course Hospital Course Hospital course: Mr. Coombs a 84-year-old male patient with significant medical history for hypertension, BPH and prior history of upper GI bleed (per ED) was brought to [facility] for dizziness and ataxic gait. After witnessing patient with the symptoms, patient's neighbor had called the EMS. Patient does not use walker or cane for ambulation and unclear last well-known. Blood glucose by EMS was found to be WNL. In ED blood pressure was elevated at 217/84, CBC indicated Hgb 12.4, MCV 90, labs were significant for NA 133, K3.2, glucose 116, troponin 0.062, BNP 339. EKG showed sinus rhythm. Urinalysis and toxicology were negative. Head CT was negative for acute hemorrhage, chest x-ray showed no active disease, brain MRI was negative for hemorrhage. Initially patient was alert and able to answer questions but over time he became combative and patient was administered 3 mg Ativan along with soft restraints. Patient was admitted for hypertensive emergency and acute encephalopathy. Patient was found to have stool impaction, bowel rgiment was initiated and patient had multiple stools. Over time patient's mentation and blood pressure improved and he was safe to be discharged to SNF on Lisinopril. Patient was advised to follow up with his PCP within x1 week of discharge. Discharge summary was reviewed with my attending Dr. Fer Mendoza, PGY 2 Status at Discharge Overall status at discharge: patient is progressing back to baseline Time Spent with Patient Time attestation: Total time spent providing and/or coordinating discharge services: Time spent: Greater than 30 minutes Exam Vital Signs Temp Pulse Resp BP Pulse Ox O2 Del Method 98.7 F 81 18 122/60 98 Room Air 07/15/24 12:00 07/15/24 16:00 07/15/24 12:00 07/15/24 12:00 07/15/24 12:00 07/15/24 12:00 Narrative Exam Constitutional Alert, oriented x 3. Elderly male HEENT Vision grossly intact. Patent nares. Trachea midline Respiratory Chest normal on inspection and clear auscultation bilaterally Cardiovascular S1 and S2 audible, RRR. No murmurs carotid bruit. No gross JVD. Abdominal Soft and non tender to palpation in all quadrants. BS + Genitourinary No bladder tenderness, no flank pain. Normal to palpation Musculoskeletal Extremities tone within normal limits. No LE edema. Neurological CN II - XII grossly intact. Extremity motor and sensation grossly intact. Skin Warm, dry and intact. No apparent lesions. Psychiatric Patient has good affect, is cooperative Discharge Plan Plan Patient Disposition: Xfer Skilled Nsg Fac (SNF) Prescriptions/Referrals Prescriptions/Med Rec: New lisinopril 40 mg tablet 40 mg PO QDAY Qty: 30 1RF Continued tamsulosin [Flomax] 0.4 MG capsule,extended release 24hr 0.4 mg PO QDAY Qty: 0 sucralfate 1 gram Tablet 0.5 tab PO BID amlodipine 10 mg Tablet 10 mg PO QDAY ferrous sulfate [iron] 325 mg (65 mg iron) Tablet 325 mg PO QDAY Discontinued metoprolol succinate 50 mg Tablet Extended Release 24 Hr 50 mg PO DAILY Referrals: No Primary/Family,Physician [Primary Care Provider] - Patient/Caregiver Discharge Instructions Other Discharge Activity Instructions:: Please follow up with your PCP within x1 week of discharge Please stop taking your home medication Metoprolol Start taking your new medication Lisinopril 40 mg once a day Continue taking the rest of your home medications If you have symptoms of dizziness, chest pain or other symptoms, go to your nearest hospital / ER Education Materials: Checking Your Own Blood Pressure, Controlling High Blood Pressure, Dizziness Balance Probs Fainting Print Language: Citizen Of [place] Stand Alone Forms: Welcome Real-time Award Info., Patient Portal Info Letter Discharge Order Discharge Orders: Discharge (Routine); Ordered 07/15/24 Ordered By: Mick Mendoza Quality Discharge Quality Measures VTE prophylaxis Attestestation Attestation I attest that I was physically present for the evaluation, physical examination, lab and imaging review of the patient with the residents. I discussed the case with the residents and agree with the findings and plans of care as documented above. Nickolas Monroe MD
[2024-07-15] MEDS: MELATONIN 3 MG TABLET PO (22:06)
== END 2024-07-15 22:30 | disposition skilled nursing facility (03) | DRG 305 ==
LOC: SERX 16:28 → SERHOLD 16:58 → S3NX 20:02
PROVIDERS: Internal Medicine; Nurse Practitioner Family; Admitting Provider Internal Medicine; Emergency Provider Emergency Medicine; Visit Provider Internal Medicine
DX: I16.1 Hypertensive emergency (principal); G93.40 Encephalopathy, unspecified; E87.1 Hypo-osmolality and hyponatremia; N40.0 Benign prostatic hyperplasia without lower urinary tract symptoms; I12.9 Hypertensive chronic kidney disease with stage 1 through stage 4 chronic kidney disease, or unspecified chronic kidney disease; R26.0 Ataxic gait; K29.70 Gastritis, unspecified, without bleeding; Z78.1 Physical restraint status; Z79.899 Other long term (current) drug therapy; R79.89 Other specified abnormal findings of blood chemistry; R45.1 Restlessness and agitation; K56.41 Fecal impaction; N18.9 Chronic kidney disease, unspecified; E83.39 Other disorders of phosphorus metabolism
CPT/HCPCS: 36415; 70450; 70553; 71045; 74177; 76705; 80053; 80307; 81001; 82140; 83735; 83880; 84100; 84443; 84484; 85025; 85610; 85730; 92526; 92610; 93005; 93225; 96365; 96372; 99285; A4649; A9579; G0378; J0360; J1630; J1643; J2060; J2470; J3480; J7030; J7070; J7120; J7999; Q9967; A9270

== ENCOUNTER 2024-07-16 14:53 | Emergency (ER) | payer MEDICARE, MEDICAID, SELFPAY ==
[2024-07-16 15:00] VITALS: BP 155/69; PULSE 86; RESP 17; TEMP 36.3; O2SAT 99
--- NOTE | 2024-07-16 15:35 | PD.EDADULT ---
ED General RME/HPI General Chief complaint: General Adult/Misc Complain Stated complaint: MENTAL EVAL Time Seen by Provider: 07/16/24 15:04 Arrival date/time: 07/16/24 14:53 RME / HPI RME / HPI narrative: 84-year-old male patient with significant history of BPH, hypertension, was brought in by EMS from [facility] regarding being aggressive towards the nurses. Started earlier today, EMS described as violent and aggressive to them. On my initial evaluation patient is cooperative answers question appropriately, and was noted to be having a GCS of 14 with could be his baseline. Patient was admitted here last week and was discharged yesterday. Currently patient is denying any pain. Related Data Home Medications ?Medication ?Instructions ?Recorded ?Confirmed tamsulosin 0.4 mg capsule (Flomax) 0.4 mg PO QDAY Prostate ##0 07/20/13 02/04/18 amlodipine 10 mg tablet 10 mg PO QDAY 02/04/18 02/04/18 ferrous sulfate 325 mg (65 mg 325 mg PO QDAY 02/04/18 02/04/18 iron) tablet (iron) sucralfate 1 gram tablet 0.5 tab PO BID 02/04/18 02/04/18 Previous Rx's ?Medication ?Instructions ?Recorded lisinopril 40 mg tablet 40 mg PO QDAY #30 tabs 07/15/24 Allergies Allergy/AdvReac Type Severity Reaction Status Date / Time No Known Allergies Allergy Unverified 07/16/24 15:50 Review of Systems Review of Systems Narrative Review of Systems: Review of system reviewed and within normal limits except mentioned in HPI ED Exam Narrative Physical exam: VITAL SIGNS: Reviewed. GENERAL APPEARANCE: Alert and interactive, follows commands, no acute distress, HEAD AND FACE: Non-traumatic. ENT: PERRL, pink conjunctivitis, eyelid no trauma, Mucous membrane moist. NECK: Supple, nontender, no nuchal rigidity. CHEST: No tenderness, no crepitus, no paradoxical movement, no retractions. LUNGS: Clear, well ventilated, symmetric, no rales, no wheezing, no ronchi, no stridor, good breath sounds bilaterally. HEART: Regular rate, regular rhythm, no murmur, no gallops. ABDOMEN: Soft, positive bowel sounds, nondistended, no guarding, nontender, no rebound, no masses, RECTAL: Deferred. GENITAL: Deferred. NEUROLOGICAL: Gross motor function intact sensory function intact, Appropriate for age. MUSCULOSKELETAL: low back nontender, full range of motion. EXTREMITIES: Nontender, full range of motion. SKIN: Color pink, dry, no rash, no lacerations, no abrasions, no contusions. LYMPHATICS: Deferred. Course Quality Measures none Orders Category Date Time Status CBC Stat Lab 07/16/24 15:48 Completed CMP [Comprehensive Metabolic Panel] Stat Lab 07/16/24 15:48 Completed UA, C/S IF [Urinalysis, C/S if Indicated] Stat Lab 07/16/24 15:34 Ordered LORazepam [Ativan] Med 07/16/24 17:19 Discontinued 1 mg PO X1 ONE Vital Signs Vital signs: Vital Signs Temperature 97.4 F 07/16/24 15:00 Pulse Rate 86 07/16/24 15:00 Respiratory Rate 17 07/16/24 15:00 Blood Pressure 155/69 H 07/16/24 15:00 Pulse Oximetry (%) 99 07/16/24 15:00 Oxygen Delivery Method Room Air 07/16/24 15:00 MDM Patient data External records reviewed:: None Clinical information provided by:: patient Social determinants that could affect healthcare access:: none Patient has the following chronic illnesses:: Pretension How is presenting disease/condition affected by chronic disease/condition?: exacerbated by Evaluation data The following diagnostics were reviewed and interpreted by me:: lab results and radiology exam(s) Lab and/or radiology exams considered but not ordered:: None Interpretation Summary: Unremarkable Medications Medications considered but not ordered:: None Medication administrations:: Medication Administration History Discontinued Medications Lorazepam (Lorazepam 0.5 Mg Tablet) 1 mg PO X1 ONE Stop: 07/16/24 17:20 Last Admin: 07/16/24 18:46 Dose: 1 mg Documented By: Adjuvant Consultations Consultation(s) initiated? (list below): No Diagnosis Differential Diagnosis ED Complaint MDM: Confusion, dementia, aggressive behavior Most likely diagnosis given after review of the tests above:: Confusion, dementia, aggressive behavior Admission Indicated Admission indicated?: not indicated Explain why admission is indicated or not indicated:: None Admission Request Was there a request for admission?: No Disposition Plan Disposition Plan: other (specify) (Pending transfer to jail) Medical Decision Making MDM Narrative MDM Narrative: 84-year-old male patient with significant history of BPH, hypertension, was brought in by EMS from [facility] facility regarding being aggressive towards the nurses. Started earlier today, EMS described as violent and aggressive to them. On my initial evaluation patient is cooperative answers question appropriately, and was noted to be having a GCS of 14 with could be his baseline. Patient was admitted here last week and was discharged yesterday. Currently patient is denying any pain. Patient remained calm and cooperative in the emergency room. Was given Ativan p.o. Pending placement to a different jail Care transferred to Dr Villegas at 1149 pm for final disposition Differential Diagnosis Differential Diagnosis: Confusion, dementia, aggressive behavior Lab Data 07/16/24 15:48 07/16/24 15:48 Labs: Lab Results 07/16/24 Range/Units 15:48 WBC 7.3 (3.8-10.6) Thou/mm3 RBC 3.96 L (4.50-5.90) Miln/mm3 Hgb 12.3 L (13.5-16.0) g/dL Hct 35.2 L (41.0-53.0) % MCV 89 (80-100) fL MCH 31.1 (25.0-35.0) pg MCHC 34.9 (31.0-37.0) g/dl RDW Std Deviation 38.8 (35.1-43.9) fL Plt Count 190 D (140-440) Thou/mm3 Neut % (Auto) 81 H (37-80) % Lymph % (Auto) 8 L (10-50) % [place] % (Auto) 9 (0-12) % Eos % (Auto) 0 (0-10) % Baso % (Auto) 0 (0-2.5) % Neut # (Auto) 6.0 (1.8-7.7) Thou/mm3 Lymph # (Auto) 0.6 L (1.0-4.8) Thou/mm3 [place] # (Auto) 0.7 (0.0-0.8) Thou/mm3 Eos # (Auto) 0.0 (0.0-0.5) Thou/mm3 Baso # (Auto) 0.0 (0.0-0.2) Thou/mm3 Immature Gran # (Auto) 0.07 H (0.00-0.00) Thou/mm3 Absolute Nucleated RBC 0.00 (0.00-0.00) Thou/mm3 Immature Gran % 1 H (0-0) % Nucleated RBC % 0 (0) /100 WBC Sodium 141 (136-145) mMol/L Potassium 3.8 (3.4-5.1) mMol/L Chloride 106 (98-107) mMol/L Carbon Dioxide 26.6 (20.0-31.0) mMol/L Anion Gap 8 (7-16) BUN 34 H (9-23) mg/dL Creatinine 1.2 (0.6-1.3) mg/dL Estim Creat Clear Calc 39.0 L (>60) mL/min eGFR 59 L (60 - ) See Note BUN/Creatinine Ratio 28 H (12-20) Ratio Glucose 95 (74-106) mg/dL Calculated Osmolality 288 (275-295) Calcium 9.6 (8.3-10.6) mg/dL Corrected Calcium 9.8 (8.5-10.1) mg/dL Total Bilirubin 0.7 (0.3-1.2) mg/dL AST 58 H (0-34) U/L ALT 45 (10-49) U/L Alkaline Phosphatase 62 (46-116) U/L Total Protein 6.1 (5.7-8.2) gm/dL Albumin 3.8 D (3.4-4.8) gm/dL Globulin 2.3 (2.3-3.5) gm/dL Albumin/Globulin Ratio 1.7 (1.2-2.2) Discharge Plan Prescriptions/Referrals Prescriptions/Med Rec: No Action tamsulosin [Flomax] 0.4 MG capsule,extended release 24hr 0.4 mg PO QDAY Qty: 0 sucralfate 1 gram Tablet 0.5 tab PO BID amlodipine 10 mg Tablet 10 mg PO QDAY ferrous sulfate [iron] 325 mg (65 mg iron) Tablet 325 mg PO QDAY lisinopril 40 mg tablet 40 mg PO QDAY Qty: 30 1RF Referrals: No Primary/Family,Physician [Primary Care Provider] - In 1 week Problem List Clinical Impression: Aggressive behavior, Dementia Patient/Caregiver Discharge Instructions Print Language: Bengali
[2024-07-16 15:54] VITALS: PULSE 78; RESP 18; O2SAT 96; BMI 20.5
[2024-07-16 16:03] LABS: Basophils % (Auto) 0 % (0-2.5); Eosinophils % (Auto) 0 % (0-10); Hematocrit 35.2 % (41.0-53.0); Hemoglobin 12.3 g/dL (13.5-16.0); Immature Granulocytes % (Auto) 1 % (0-0); Immature Granulocytes Auto 0.07 Thou/mm3 (0.00-0.00); Lymphocytes # (Auto) 0.6 Thou/mm3 (1.0-4.8); Lymphocytes % (Auto) 8 % (10-50); Mean Corpuscular HGB Conc 34.9 g/dl (31.0-37.0); Mean Corpuscular Hemoglobin 31.1 pg (25.0-35.0); Mean Corpuscular Volume 89 fL (80-100); Monocytes # (Auto) 0.7 Thou/mm3 (0.0-0.8); Monocytes % (Auto) 9 % (0-12); Neutrophils % (Auto) 81 % (37-80); Nucleated Red Blood Cell % 0 /100 WBC (0); Platelet Count 190 Thou/mm3 (140-440); RDW Standard Deviation 38.8 fL (35.1-43.9); Red Blood Count 3.96 Miln/mm3 (4.50-5.90); White Blood Count 7.3 Thou/mm3 (3.8-10.6)
[2024-07-16 16:15] LABS: Alanine Aminotransferase 45 U/L (10-49); Albumin, Serum 3.8 gm/dL (3.4-4.8); Albumin/Globulin Ratio 1.7 (1.2-2.2); Alkaline Phosphatase 62 U/L (46-116); Anion Gap 8 (7-16); Aspartate Amino Transferase 58 U/L (0-34); BUN/Creatinine Ratio 28 Ratio (12-20); Bilirubin,Total 0.7 mg/dL (0.3-1.2); Blood Urea Nitrogen 34 mg/dL (9-23); Calcium 9.6 mg/dL (8.3-10.6); Calcium (Corrected) 9.8 mg/dL (8.5-10.1); Carbon Dioxide 26.6 mMol/L (20.0-31.0); Chloride 106 mMol/L (98-107); Creatinine (Component) 1.2 mg/dL (0.6-1.3); Globulin 2.3 gm/dL (2.3-3.5); Glucose 95 mg/dL (74-106); Osmolality,Calculated 288 (275-295); Potassium 3.8 mMol/L (3.4-5.1); Sodium 141 mMol/L (136-145); Total Protein 6.1 gm/dL (5.7-8.2); eGFR 59 See Note
[2024-07-16 16:43] VITALS: BP 135/51; PULSE 77; RESP 18; TEMP 36.9; O2SAT 100
--- NOTE | 2024-07-16 17:23 | PC.CC ---
Pt Truman Coombs, is a 84-year-old male brought in to ED by EMS for Mental Eval requested by [facility]. Direct Sales Representative met with pt to complete Mental Health Eval. Pt able to get up from gooney and walk around room. Pt was confused and unable to engage in cohesive communication as contact as encounter progressed. It is noted that Pt has dementia and behaviors and confusion directly related to medical diagnosis. At this time Pt does not meet critiria for a 5150 mental health hold. Pt to return to SNIF placement.
[2024-07-16] MEDS: LORazepam 0.5 MG TABLET 1 MG PO (18:46)
--- NOTE | 2024-07-16 19:07 | PC.CC ---
ED Professional Athlete contacted person to notify on Pt contact sheet Luis Enrique Jones [phone]. Luis Enrique reported he has been pt friend for the past 30 years, also reported pt does not have any family. Luis Enrique reported Pt was seeing a doctor regularly but does not know doctor name or diagnosis. Pt will not be able to return back to [facility]. [facility] will assist with placement of lock down SNIF facility.
[2024-07-16 22:48] VITALS: BP 131/76; PULSE 80; RESP 16; TEMP 36.4; O2SAT 98
--- NOTE | 2024-07-16 22:52 | PC.NURSE ---
PT RESTING QUIETLY ON GURNEY WITH SIDE RAILS UP. VITAL SIGNS TAKEN. MAGENTO DEVELOPER OUTSIDE ROOM.
[2024-07-17] VITALS (8 sets, daily range): BP systolic 111–152; BP diastolic 54–91; PULSE 55–71; RESP 16–18; TEMP 36.4–36.8; O2SAT 97–100
--- NOTE | 2024-07-17 05:12 | PD.EDADDENDU ---
Emergency Room Addendum Addendum Narrative: At 11 PM on 07/16/2024, I took over the care from Garrett Nieves NP. See his notes for complete H&P and ED course. At 6 AM on 07/17/2024, the care of the patient was transferred to Dr. Alejandra. During my watch, the patient remained stable. Neftali Villegas MD
--- NOTE | 2024-07-17 07:23 | PC.CC ---
ROXIWJaida sent referral for patient to be placed at a locked facility as [facility] could [facility] as he needs higher level of care than what they can provide. Referral initiated via Katharina.
--- NOTE | 2024-07-17 08:00 | PC.NURSE ---
BREAKFAST TRAY PROVIDED.
--- NOTE | 2024-07-17 08:40 | PC.CC ---
Addendum entered by Jaida Mcdonnell 07/17/24 09:03: Bernice with [facility] reports they cannot accommodate the patient at this time. Original Note: Jaida FLORES received a call from [facility] who reports they have a male bed available and are considering taking the patient.
--- NOTE | 2024-07-17 12:30 | PC.NURSE ---
LUNCH TRAY PROVIDED.
--- NOTE | 2024-07-17 13:24 | PC.CC ---
Jaida FLORES made contact with Luis Enrique patient's friend who is the only person patient has in his life. ROXIW provided him with an update that [facility] is reconsidering him but if not we would need to send him [place] out of the county.
--- NOTE | 2024-07-17 13:56 | PD.EDADDENDU ---
Emergency Room Addendum Addendum Narrative: 0600: Care assumed from Dr. Villegas, the previous shift emergency physician. Past medical, surgical, social and family history reviewed. Vitals and home medications reviewed. I will assume the care of the patient at this time, pending placement. Please refer to the emergency department record for history and examination from initial visit.? 1800: Patient signed out to Dr. Langston pending placement.
--- NOTE | 2024-07-17 14:06 | PC.CM ---
Jaida FLORES was contacted by Erendira , [facility] who reports they can accept the patient tomorrow anytime before 5pm, if we decide to send him the number for nurse to nurse report is .
--- NOTE | 2024-07-17 15:44 | PC.CC ---
ASW attempted file an APS report left a message and fax report to [phone].
--- NOTE | 2024-07-17 16:08 | PC.CC ---
Suzan Owens with APS called back ASW provided report to her.
[2024-07-17 17:41] LABS: Bacteria,Urine Rare; Bilirubin,Urine Negative (Negative); Blood,Urine Negative (Negative); Clarity,Urine Clear (Clear/Hazy); Collection Type, Urine Clean Catch; Color,Urine Yellow (Lt Yel-Yel); Culture Indicated,Urine Not Indicated; Glucose, Urine Negative (Negative); Ketones,Urine Negative (Negative); Leukocyte Esterase,Urine Negative (Negative); Nitrite,Urine Negative (Negative); PH,Urine 6.5 (5.0-7.0); Protein,Urine Trace (Neg - Trace); RBC,Urine 4 /hpf (0-3); Specific Gravity,Urine 1.019 (1.001-1.035); Squamous Epithelial Cell,Urine < 1 /hpf (0-5); WBC,Urine 2 /hpf (0-5)
--- NOTE | 2024-07-17 19:16 | PD.EDADDENDU ---
Emergency Room Addendum Addendum Narrative: 1800: Care assumed from Dr. Alejandra, the previous shift emergency physician. Past medical, surgical, social and family history reviewed. Vitals and home medications reviewed. I will assume the care of the patient at this time, pending placement. Please refer to the emergency department record for history and examination. While in ED observation the patient will have access to water, food, and personal hygiene. If the patient takes home medication(s), they will be continued in ED observation. Physical exam by me shows patient under no acute distress at this time. Review of the record shows patient has been accepted to [facility]. MD Attestation MD Attestation Scribe Attestation: I, Whitney Lin, am scribing for and in the presence of Dr. Langston. Provider Notation: Although this document has been carefully reviewed, there may still be some phonetic and other typographical errors. These errors are purely grammatical due to imperfections in the software program and should not be construed in any way to compromise the substance of the patient's medical care during this visit.
[2024-07-18 05:45] VITALS: BP 168/64; PULSE 71; RESP 16; TEMP 36.4; O2SAT 97
--- NOTE | 2024-07-18 07:09 | EDNOTE_ITS ---
Emergency Room Addendum <Lilibeth Gautam - Last Filed: 07/18/24 11:13> Addendum Narrative: 0600: Care assumed from Dr. Langston, the previous shift emergency physician. Past medical, surgical, social and family history reviewed. Vitals and home medications reviewed. Results and treatment plan discussed. The patient was placed in ED observation care at 0600 07/18/2024, pending placement. Please refer to the emergency department record for history and examination.? While in ED observation the pt will have access to water, food, and personal hygiene. If the pt takes home medication(s), they will be continued in ED observation. Patient has been accepted for transfer to [facility]. <Reid Alejandra MD - Last Filed: 07/18/24 11:15> Addendum Narrative: 0600: Care assumed from Dr. Langston, the previous shift emergency physician. Past medical, surgical, social and family history reviewed. Vitals and home medica tions reviewed. Results and treatment plan discussed. The patient was placed in ED observation care at 0600 07/18/2024, pending placement. Please refer to the emergency department record for history and examination.? While in ED observation the pt will have access to water, food, and personal hygiene. If the pt takes home medication(s), they will be continued in ED obser vation. 11 AM, the patient's been accepted at an elderly skilled nursing facility. Kit from oncology social worker is taking care of arrangement for transfer and logistics. Head nurse sen is aware of the plan. Patient is stable for transfer Diagnosis: Aggressive behavior [facility] placement History of dementia Condition: Stable for transfer to skilled nursing
[2024-07-18 08:20] VITALS: BP 152/64; PULSE 75; RESP 18; TEMP 36.7; O2SAT 99
--- NOTE | 2024-07-18 09:38 | PC.NURSE ---
Patient lying in gurney queitly, cooperative, confused, patient not sure why he is in the ER. Patient alert and oriented to person, not place or time. Patient awaiting placement to other SNF facilty do to his behavior, patient has h/o dementia and has been combative and harm to self and others at [facility]. Currently patient answering some questions, however, intermittently inappropriate. Skin is cool dry and slightly pale. Will speak with S/S worker regarding status of placement.
[2024-07-18 10:11] VITALS: BP 166/61; PULSE 65; RESP 17; TEMP 36.2; O2SAT 100
--- NOTE | 2024-07-18 11:30 | PC.CC ---
Addendum entered by Nkechi Llamas 07/18/24 12:36: Missy contacted [employer] ([phone]) to schedule transportation for 1400. Addendum entered by Nkechi Llamas 07/18/24 11:38: Beside RN to call [phone] to provide report. Original Note: Dental Scheduler (MADHAVI) Nkechi notified by Admission CoordinatorErendira at [facility] (address: [address] [place] [id number]) that patient was accepted for today; however, he needed to be there before 1700. MADHAVI attempted to contact [facility] Coordinator, Annalee with no success to make an attempt to place patient closer to his only friend, Luis Enrique. However, Annalee did not answer. MADHAVI notified patient's friend, Luis Enrique Fung, that he was only accepted to [facility]. Luis Enrique in agreement with transfer. MADHAVI notified him that transport would be schedule for no later than 1300. [facility], reference number: [id number]. MADHAVI left voice messages for APS and [facility] to return phone call for an update. Patient is pending transportation.
[2024-07-18 11:57] VITALS: BP 138/55; PULSE 80; RESP 17; TEMP 36.6; O2SAT 96
[2024-07-18 14:08] VITALS: BP 139/64; PULSE 85; RESP 17; TEMP 36.9; O2SAT 97
--- NOTE | 2024-07-19 12:01 | PC.SS ---
LONE LEAD LINEMAN received phone call from [facility] requesting face sheet confirming patient's admission date and subsequent ER visit. Patient transitioned to [facility] from ER. Documentation to be submitted to . [employer]. DEV to submit requested information.
--- NOTE | 2024-07-19 12:05 | PC.SS ---
Name of facility is [facility].
--- NOTE | 2024-07-20 10:15 | PC.CC ---
Jaida FLORES made contact with Dillan with [facility] regarding the [facility] and [facility]. The patient was refused to return back to [facility] due to extreme Behaviors. While this ASW was present on shift patient did not present with any behvioral issues. [facility]
== END 2024-07-18 14:34 | disposition skilled nursing facility (03) ==
PROVIDERS: Nurse Practitioner Family; Emergency Provider Emergency Medicine
DX: F03.911 Unspecified dementia, unspecified severity, with agitation (principal); I10 Essential (primary) hypertension; Z75.1 Person awaiting admission to adequate facility elsewhere
CPT/HCPCS: 36415; 80053; 81001; 85025; 90839; 96127; 99285; A9270